=== PATIENT | female | born 1945 | race Caucasian/White ===

== ENCOUNTER 2017-08-23 09:28 | Emergency (ER) | payer MEDICARE, OTHER ==
[~2017-08-23] VITALS: Ht 157.5 cm; Wt 52.6 kg
[~2017-08-23 09:28] MED LIST: CALCIUM500 M2 PO; CRANBERRY450 M3; INDERAL60 MG PO; PHILLIPS; SENNA-DOCUSATE1 EAC2; Z VITAMIN D PO; Z.0.ASPIRIN81 MG PO; Z.0.DEPAKOTE250 MG PO; Z.0.VALIUM2 MG PO; [UNRECOGNIZED DRUG - OTHER]; [UNRECOGNIZED DRUG - OTHER] PO
--- NOTE | 2017-08-23 10:21 | Diagnostic Imaging Report ---
EXAM: XR CHEST 2 VIEWS DATE: 08/23/2017 9:41 AM INDICATION: Fever COMPARISON: 08/16/2014 FINDINGS: Lines and Tubes: None Heart and Mediastinum: No acute findings. Lungs and Pleura: No acute findings. Bones and Soft Tissues: No acute findings. IMPRESSION: 1. No acute cardiopulmonary findings. Signed by: Dr. Kristian Adams MD on 08/23/2017 10:18 AM
[2017-08-23] MEDS ORDERED: ONDANSETRON HCL 4 MG ORAL DISINTEGRATING TAB PO ONE (12:00)
[2017-08-23 13:40] VITALS: BP 120/55
== END 2017-08-23 14:19 | disposition home or self-care (01) ==
LOC: ER 09:28
DX: R50.9 Fever, unspecified (principal); R05 Cough; R11.0 Nausea; R51 Headache; M79.1 Myalgia; B34.9 Viral infection, unspecified
CPT/HCPCS: 71020; 87400; 99283

== ENCOUNTER 2018-04-02 14:38 | Emergency (ER) | payer MEDICARE, OTHER ==
[~2018-04-02] VITALS: Ht 157.5 cm; Wt 51.7 kg
[2018-04-02 15:49] LABS: BASOPHILS % 0.4 % (0.0-1.0); EOSINOPHILS # (AUTO) 0.1 (0.0-0.4); EOSINOPHILS % 1.6 % (0.0-6.0); HEMATOCRIT 49.1 % (34.2-44.1); HEMOGLOBIN 16.6 g/dL (12.0-16.0); LYMPHOCYTES # (AUTO) 2.3 (1.0-3.2); LYMPHOCYTES % 47.2 % (18.0-39.1); MEAN CORPUSCULAR HEMOGLOBIN 32.3 pg (28-32); MEAN CORPUSCULAR HGB CONC 33.8 g/dL (31-35); MEAN CORPUSCULAR VOLUME 95.5 fL (81-99); MONOCYTES # (AUTO) 0.4 (0.2-0.8); MONOCYTES % 8.5 % (4.4-11.3); NEUTROPHILS # (AUTO) 2.1 (2.1-6.9); NEUTROPHILS % 41.5 % (38.7-80.0); PLATELET COUNT 167 x10e3/uL (140-360); RED BLOOD COUNT 5.14 x10e6/uL (3.6-5.1); RED CELL DISTRIBUTION WIDTH 12.3 % (11.7-14.4)
[2018-04-02 15:58] LABS: BILIRUBIN,URINE NEGATIVE (NEGATIVE); CLARITY,URINE CLEAR (CLEAR); COLOR,URINE YELLOW (YELLOW); KETONES,URINE NEGATIVE (NEGATIVE); LEUKOCYTE ESTERASE ,URINE NEGATIVE (NEGATIVE); NITRITE,URINE NEGATIVE (NEGATIVE); PROTEIN,URINE DIPSTICK NEGATIVE (NEGATIVE); URINE UROBILINOGEN 0.2 mg/dL (0.2 - 1)
[2018-04-02 16:07] LABS: EPITHELIAL CELLS,URINE RARE /LPF
[2018-04-02 16:21] LABS: ALANINE AMINOTRANSFERASE 24 IU/L (0-55); ALBUMIN/GLOBULIN RATIO 1.3 (0.8-2.0); ALKALINE PHOSPHATASE 69 IU/L (40-150); ANION GAP 12.9 mmol/L (8-16); BLOOD UREA NITROGEN 21 mg/dL (7-26); BUN/CREATININE RATIO 25 (6-25); CALCIUM 9.5 mg/dL (8.4-10.2); CARBON DIOXIDE 29 mmol/L (22-29); CHLORIDE 100 mmol/L (98-107); CREATININE, SERUM 0.85 mg/dL (0.57-1.11); EST GLOMERULAR FILTRATION RATE > 60 ML/MIN (60-); GLUCOSE 87 mg/dL (74-118); POTASSIUM 3.9 mmol/L (3.5-5.1); SODIUM 138 mmol/L (136-145)
[2018-04-02 16:41] LABS: THYROID STIMULATING HORMONE 1.856 uIU/mL (0.350-4.940)
[2018-04-02 16:43] LABS: ERYTHROCYTE SEDIMENTATION RATE 2 mm/hr (0-20)
--- NOTE | 2018-04-02 16:48 | Diagnostic Imaging Report ---
History:Migraines Comparison studies:CT of the head 02/27/2009 Technique: Axial images were obtained from the skull base to the vertex. Coronal and sagittal images reconstructed from the axial data. Intravenous contrast: None Findings: Scalp/skull: No abnormalities. Extra-axial spaces: No masses. No fluid collections. Brain sulci: Mildly prominent. Ventricles: Mild compensatory dilatation. No hydrocephalus. Parenchyma: Scattered small hypodensities in the supratentorial white matter are small vessel ischemic changes. No masses, hemorrhage, acute or chronic cortical vascular insults. Sellar/suprasellar region: No abnormalities. Craniocervical junction: Patent foramen magnum. No Chiari one malformation. Incidental findings: Atherosclerotic calcifications in the carotid siphons . Impression: No acute abnormalities. Chronic findings: 1. Mild generalized volume loss. 2. Mild supratentorial white matter small vessel ischemic changes. Signed by: DR Severino Landry M.D. on 04/02/2018 4:44 PM
[2018-04-02 18:47] VITALS: BP 144/78
== END 2018-04-02 19:02 | disposition home or self-care (01) ==
LOC: ER 14:38
DX: H81.43 Vertigo of central origin, bilateral (principal)
CPT/HCPCS: 36415; 70450; 80053; 80164; 81001; 84443; 85025; 85651; 87086; 93005; 99284

== ENCOUNTER → 2018-05-14 | Outpatient (CLI) | payer MEDICARE ==
--- NOTE | 2018-05-14 17:50 | Diagnostic Imaging Report ---
Exam: Brain MRI without IV contrast History: Headache, migraine Comparison studies: Head CT of 04/02/2018 and 02/27/2009. Technique: Sagittal and axial T2 FS, axial DWI, axial T2*GRE, axial T1 FLAIR and axial coronal T2 FLAIR. Intravenous contrast: None Findings: Scalp: Normal in signal. No masses. Bone marrow: Normal in signal intensity. Brain sulci: Mildly prominent. Ventricles: Mild compensatory dilatation. No hydrocephalus. Extra axial spaces: No mass, no fluid collection. Parenchyma: No mass, hemorrhage or acute ischemia. A few scattered and mildly confluent T2 FLAIR hyperintense foci in the supratentorial white matter are nonspecific most compatible with chronic microvascular ischemic changes. Small chronic lacunar infarct in the right cerebellum. Suprasellar region: No abnormalities. Craniocervical junction: Patent foramen magnum. No Chiari malformation. Vessels: Normal flow-voids in the arteries and sinuses. IMPRESSION: 1. Mild generalized volume loss. 2. Mild to moderate chronic microvascular ischemic changes. 3. Small chronic right cerebellar lacunar infarct. Signed by: Dr. Terrence Wheeler M.D. on 05/14/2018 5:46 PM
== END ==
LOC: MRI 16:34
PROVIDERS: ATTEND Psychiatry & Neurology Clinical Neurophysiology
DX: G43.019 Migraine without aura, intractable, without status migrainosus (principal)
CPT/HCPCS: 70551

== ENCOUNTER 2018-06-17 11:35 | Emergency (ER) | payer MEDICARE ==
[~2018-06-17] VITALS: Ht 157.5 cm; Wt 51.7 kg
--- OUTSIDE RECORDS SUMMARY | 2018-06-17 11:39 | XMS REPORT | Clinical Summary ---
Author Author [facility] Address Unknown Phone Unavailable Care Team Providers Care Spd Tech Name Role Phone Ronnie Flores MD PCP Allergies Active Allergy Reactions Severity Noted Date Comments Acetaminophen-Codeine 07/09/2017 Sulfamethoxazole-Trimetho 07/09/2017 prim Ciprofloxacin 07/09/2017 Duloxetine 07/09/2017 Meperidine 07/09/2017 Amitriptyline 07/09/2017 Iodine 07/09/2017 Nitrofurantoin 07/09/2017 Macrocrystal Butorphanol Tartrate 07/09/2017 Pentazocine Lactate 07/09/2017 Gatifloxacin 07/09/2017 Tramadol 07/09/2017 Sertraline 07/09/2017 Current Medications Prescription Sig. Disp. Refills Start End Date Status Date divalproex (DEPAKOTE) 250 1 tablet daily. 1 06/22/20 Active MG EC tablet 17 propranolol (INDERAL) 40 Take 40 mg by mouth once 0 05/06/20 Active MG tablet daily. 17 aspirin (ECOTRIN) 81 MG Take 81 mg by mouth Active enteric coated tablet daily. diazePAM (VALIUM) 2 MG Take 2 mg by mouth as Active tablet needed for anxiety. acetaminophen (TYLENOL) Take 500 mg by mouth as Active 500 MG tablet needed for mild pain. senna (SENOKOT) 8.6 mg Take 2 tablets by mouth Active tablet daily. docusate sodium (COLACE) Take 100 mg by mouth 2 Active 100 MG capsule (two) times a day. SIMETHICONE (GAS-X ORAL) Take 1 tablet by mouth as Active needed. multivitamin (THERAGRAN) Take 1 tablet by mouth Active tablet daily. tiZANidine (ZANAFLEX) 2 Take 1/2-1 po tid prn 60 tablet 2 07/09/20 Active MG tabletIndications: vertigo or headache 17 Migraine without aura and without status migrainosus, not intractable, Vertigo butalbital-acetaminophen- Take 1 by mouth every 6 20 tablet 0 08/12/20 Active caff (FIORICET, ESGIC) hours when necessary 17 50-325-40 mg per tablet headache butalbital-acetaminophen- Take 1 tablet by mouth 2 06/08/20 08/12/20 Discontin caff (FIORICET, ESGIC) every 6 (six) hours as 17 17 ued 50-325-40 mg per tablet needed. Active Problems Problem Noted Date Migraine without aura and without status migrainosus, not intractable 07/09/2017 Vertigo 07/09/2017 History of cerebellar stroke 07/09/2017 Anxiety 07/09/2017 Encounters Date Type Specialty Care Team Description 10/28/2017 Telephone Neurology Kait Gregg MD 08/12/2017 Telephone Neurology Aletha Geronimo MA 07/09/2017 Office Visit Neurology Kait Gregg MD Migraine without aura and without status migrainosus, not intractable (Primary Dx); Vertigo; History of cerebellar stroke; Anxiety 06/22/2017 Telephone Neurology Kait Gregg MD after 06/16/2017 Family History Medical History Relation Name Comments Heart disease Father Hypertension Father Diabetes Mother Heart disease Mother Hypertension Mother Migraines Mother Pancreatic cancer Mother Stroke Mother Relation Name Status Comments Father (Age 78) Mother (Age 65) Social History Tobacco Use Types Packs/Day Years Used Date Former Smoker Quit: 2007 Alcohol Use Drinks/Week oz/Week Comments No Sex Assigned at Date Recorded Not on file Last Filed Vital Signs Vital Sign Reading Time Taken Blood Pressure 134/84 07/09/2017 1:19 PM LINE LEADER Pulse 69 07/09/2017 1:19 PM LINE LEADER Temperature - - Respiratory Rate - - Oxygen Saturation - - Inhaled Oxygen - - Concentration Weight 53.1 kg (117 lb) 07/09/2017 1:16 PM LINE LEADER Height 157.5 cm (5' 2") 07/09/2017 1:16 PM LINE LEADER Body Mass Index 21.4 07/09/2017 1:16 PM LINE LEADER Plan of Treatment Health Maintenance Due Date Last Done Comments BREAST CANCER SCREENING 1993 COLON CANCER SCREENING 1993 SHINGRIX VACCINE (#1) 1993 ZOSTER VACCINE 2003 PNEUMOCOCCAL 2008 POLYSACCHARIDE VACCINE AGE 65 AND OVER PNEUMOCOCCAL-13 2008 INFLUENZA VACCINE 03/31/2018 Results Not on fileafter 06/16/2017 Insurance Payer Benefit Subscriber ID Type Phone Address Plan / Group MEDICARE MEDICARE xxxxxxxxxx Medicare [place]OTH[place], [place] PART A AND B [facility] xxxxxxxxx [facility] [place] [address]
[2018-06-17] MEDS ORDERED: ONDANSETRON HCL INJ 2 MG/ML VIAL IV STA (12:33)
[2018-06-17] MEDS ORDERED: IBUPROFEN 400 MG TAB PO ONE (12:45)
[2018-06-17] MEDS ORDERED: FENTANYL CITRATE/PF 100MCG/2 ML INJ IV ONE (13:15)
[2018-06-17 13:31] LABS: BASOPHILS % 0.3 % (0.0-1.0); EOSINOPHILS # (AUTO) 0.1 (0.0-0.4); HEMATOCRIT 45.7 % (34.2-44.1); HEMOGLOBIN 15.1 g/dL (12.0-16.0); LYMPHOCYTES # (AUTO) 1.5 (1.0-3.2); LYMPHOCYTES % 23.6 % (18.0-39.1); MEAN CORPUSCULAR HEMOGLOBIN 32.1 pg (28-32); MEAN CORPUSCULAR VOLUME 97.2 fL (81-99); MONOCYTES # (AUTO) 0.3 (0.2-0.8); MONOCYTES % 4.1 % (4.4-11.3); NEUTROPHILS # (AUTO) 4.5 (2.1-6.9); NEUTROPHILS % 69.7 % (38.7-80.0); PLATELET COUNT 109 x10e3/uL (140-360); RED CELL DISTRIBUTION WIDTH 12.2 % (11.7-14.4)
[2018-06-17 13:48] LABS: ALANINE AMINOTRANSFERASE 26 IU/L (0-55); ALBUMIN 3.8 g/dL (3.5-5.0); ALBUMIN/GLOBULIN RATIO 1.5 (0.8-2.0); ALKALINE PHOSPHATASE 54 IU/L (40-150); ANION GAP 16.8 mmol/L (8-16); BLOOD UREA NITROGEN 21 mg/dL (7-26); BUN/CREATININE RATIO 26 (6-25); CALCIUM 9.4 mg/dL (8.4-10.2); CARBON DIOXIDE 22 mmol/L (22-29); CHLORIDE 103 mmol/L (98-107); EST GLOMERULAR FILTRATION RATE > 60 ML/MIN (60-); GLUCOSE 134 mg/dL (74-118); POTASSIUM 4.8 mmol/L (3.5-5.1); SODIUM 137 mmol/L (136-145)
[2018-06-17 14:20] LABS: CREATINE KINASE MB 0.9 ng/mL (0-5.0)
--- NOTE | 2018-06-17 14:37 | Diagnostic Imaging Report ---
EXAM: XR CHEST 2 VIEWS DATE: 06/17/2018 12:33 PM INDICATION: Pain, nausea COMPARISON: None FINDINGS: Lines and Tubes: None Heart and Mediastinum: No acute cardiomediastinal findings. Lungs and Pleura: No significant pleural effusion, pneumothorax, or focal consolidation. Bones and Soft Tissues: No acute findings. IMPRESSION: 1. No acute cardiopulmonary findings. Signed by: Dr. Kristian Adams MD on 06/17/2018 2:33 PM
[2018-06-17] MEDS ORDERED: HYDROMORPHONE 1MG/1ML INJ IV STA (14:39)
[2018-06-17] MEDS ORDERED: HYDROMORPHONE 2MG/ML 2 MG/ML ML IV NR (14:45)
[2018-06-17] MEDS ORDERED: ONDANSETRON HCL INJ 2 MG/ML VIAL IV NR (14:53)
[2018-06-17 16:23] LABS: BILIRUBIN,URINE NEGATIVE (NEGATIVE); CLARITY,URINE CLEAR (CLEAR); COLOR,URINE YELLOW (YELLOW); KETONES,URINE 1+ (NEGATIVE); LEUKOCYTE ESTERASE ,URINE NEGATIVE (NEGATIVE); NITRITE,URINE NEGATIVE (NEGATIVE); PROTEIN,URINE DIPSTICK NEGATIVE (NEGATIVE); URINE UROBILINOGEN 0.2 mg/dL (0.2 - 1)
[2018-06-17] MEDS ORDERED: PROMETHAZINE HCL 25 MG TAB PO NR (16:30)
[2018-06-17 16:34] LABS: BACTERIA,URINE MODERATE /HPF; EPITHELIAL CELLS,URINE FEW /LPF
[2018-06-17 16:35] LABS: AMORPHOUS SEDIMENT,URINE MANY (FEW); HYALINE CASTS 0-1 (0-1); MUCUS,URINE MODERATE (RARE)
[2018-06-17] MEDS ORDERED: HYDROMORPHONE 2MG/ML 2 MG/ML ML IV ONE (16:45)
[2018-06-17] MEDS ORDERED: PROMETHAZINE12.5 M1 PO (18:07)
[2018-06-17] MEDS ORDERED: ONDANSETRON HCL 4 MG ORAL DISINTEGRATING TAB PO ONE (18:15)
[2018-06-17] MEDS ORDERED: ACETAMINOPHEN 325 MG TAB PO ONE (18:15)
[2018-06-17] MEDS ORDERED: ACETAMINOPHEN 325 MG TAB ONE (18:25)
[2018-06-17] MEDS ORDERED: ACETAMINOPHEN 325 MG TAB PO NR (18:30)
[2018-06-17 19:34] VITALS: BP 186/83
== END 2018-06-17 19:20 | disposition home or self-care (01) ==
LOC: ER 11:35
DX: M54.6 Pain in thoracic spine (principal); S23.3XXA Sprain of ligaments of thoracic spine, initial encounter; X50.1XXA Overexertion from prolonged static or awkward postures, initial encounter; Y92.008 Other place in unspecified non-institutional (private) residence as the place of occurrence of the external cause; Z86.73 Personal history of transient ischemic attack (TIA), and cerebral infarction without residual deficits
CPT/HCPCS: 36415; 71046; 80053; 81001; 82550; 82553; 84484; 85025; 99284; J1170; J2405

== ENCOUNTER 2018-06-18 18:37 | Emergency (ER) | payer MEDICARE ==
[~2018-06-18] VITALS: Ht 157.5 cm; Wt 51.7 kg
[~2018-06-18 18:37] MED LIST changes: +PROMETHAZINE12.5 M1 PO
--- OUTSIDE RECORDS SUMMARY | 2018-06-18 18:41 | XMS REPORT | Clinical Summary ---
Author Author [facility] Address Unknown Phone Unavailable Care Team Providers Care Pet Groomer Name Role Phone Ronnie Flores MD PCP [...] 06/22/2017 Telephone Neurology Kait Gregg MD after 06/17/2017 Family History Medical History Relation Name Comments [...] Taken Blood Pressure 134/84 07/09/2017 1:19 PM AUTOMATION TEST DEVELOPER Pulse 69 07/09/2017 1:19 PM AUTOMATION TEST DEVELOPER Temperature - - Respiratory Rate - - Oxygen Saturation - - Inhaled Oxygen - - Concentration Weight 53.1 kg (117 lb) 07/09/2017 1:16 PM AUTOMATION TEST DEVELOPER Height 157.5 cm (5' 2") 07/09/2017 1:16 PM AUTOMATION TEST DEVELOPER Body Mass Index 21.4 07/09/2017 1:16 PM AUTOMATION TEST DEVELOPER Plan of Treatment Health Maintenance Due Date Last Done Comments BREAST CANCER SCREENING 1993 COLON CANCER SCREENING 1993 SHINGRIX VACCINE (#1) 1993 ZOSTER VACCINE 2003 PNEUMOCOCCAL 2008 POLYSACCHARIDE VACCINE AGE 65 AND OVER PNEUMOCOCCAL-13 2008 INFLUENZA VACCINE 03/31/2018 Results Not on fileafter 06/17/2017 Insurance Payer Benefit Subscriber ID Type Phone Address Plan / Group MEDICARE MEDICARE xxxxxxxxxx Medicare [place], [place] PART A AND B [facility] xxxxxxxxx [facility] [place] [address]
[2018-06-18] MEDS ORDERED: HYDROCODONE/APAP 5MG-325MG TAB PO ONE (21:15)
[2018-06-18 21:36] LABS: BASOPHILS % 0.2 % (0.0-1.0); EOSINOPHILS % 0.3 % (0.0-6.0); HEMATOCRIT 49.6 % (34.2-44.1); HEMOGLOBIN 17.1 g/dL (12.0-16.0); LYMPHOCYTES # (AUTO) 2.3 (1.0-3.2); MEAN CORPUSCULAR HEMOGLOBIN 32.1 pg (28-32); MEAN CORPUSCULAR HGB CONC 34.5 g/dL (31-35); MEAN CORPUSCULAR VOLUME 93.2 fL (81-99); MONOCYTES # (AUTO) 0.9 (0.2-0.8); MONOCYTES % 10.5 % (4.4-11.3); NEUTROPHILS # (AUTO) 5.4 (2.1-6.9); NEUTROPHILS % 61.7 % (38.7-80.0); PLATELET COUNT 173 x10e3/uL (140-360); RED BLOOD COUNT 5.32 x10e6/uL (3.6-5.1); RED CELL DISTRIBUTION WIDTH 12.2 % (11.7-14.4)
[2018-06-18] MEDS ORDERED: LORAZEPAM 1 MG TAB PO STA (21:51)
[2018-06-18 21:53] LABS: ALANINE AMINOTRANSFERASE 23 IU/L (0-55); ALBUMIN 4.3 g/dL (3.5-5.0); ALBUMIN/GLOBULIN RATIO 1.4 (0.8-2.0); ALKALINE PHOSPHATASE 59 IU/L (40-150); ANION GAP 17.6 mmol/L (8-16); BLOOD UREA NITROGEN 17 mg/dL (7-26); BUN/CREATININE RATIO 20 (6-25); CALCIUM 10.4 mg/dL (8.4-10.2); CARBON DIOXIDE 27 mmol/L (22-29); CHLORIDE 100 mmol/L (98-107); CREATINE KINASE 44 IU/L (29-168); CREATININE, SERUM 0.84 mg/dL (0.57-1.11); EST GLOMERULAR FILTRATION RATE > 60 ML/MIN (60-); GLUCOSE 140 mg/dL (74-118); POTASSIUM 4.6 mmol/L (3.5-5.1); SODIUM 140 mmol/L (136-145)
[2018-06-18] MEDS ORDERED: BUPIVACAINE HCL 0.5% INJ 30 ML VIAL INJ ONE (22:45)
[2018-06-18] MEDS ORDERED: METHYLPREDNISOLONE ACETATE 40 MG/ML VIAL IM ONE (22:45)
[2018-06-18] MEDS ORDERED: BUPIVACAINE HCL 0.5% 10ML MPF VIAL INJ ONE (23:06)
[2018-06-18] MEDS ORDERED: METHYLPREDNISOLONE ACETATE 80 MG/ML VIAL ONE (23:06)
[2018-06-18 23:58] VITALS: BP 178/84
== END 2018-06-19 00:29 | disposition home or self-care (01) ==
LOC: ER 18:37
DX: I10 Essential (primary) hypertension (principal); Z86.73 Personal history of transient ischemic attack (TIA), and cerebral infarction without residual deficits; Z87.442 Personal history of urinary calculi
CPT/HCPCS: 20552; 36415; 80053; 82550; 82553; 84484; 85025; 93005; 99284; J1040

== ENCOUNTER 2019-06-10 13:14 | Emergency (ER) | payer MEDICARE ==
[~2019-06-10] VITALS: Ht 157.5 cm; Wt 51.7 kg
[2019-06-10 14:34] LABS: BASOPHILS % 0.4 % (0.0-1.0); EOSINOPHILS # (AUTO) 0.1 (0.0-0.4); EOSINOPHILS % 2.5 % (0.0-6.0); HEMATOCRIT 44.4 % (34.2-44.1); HEMOGLOBIN 15.1 g/dL (12.0-16.0); LYMPHOCYTES # (AUTO) 1.4 (1.0-3.2); LYMPHOCYTES % 48.8 % (18.0-39.1); MEAN CORPUSCULAR HEMOGLOBIN 32.5 pg (28-32); MEAN CORPUSCULAR VOLUME 95.5 fL (81-99); MONOCYTES # (AUTO) 0.3 (0.2-0.8); MONOCYTES % 8.8 % (4.4-11.3); NEUTROPHILS # (AUTO) 1.1 (2.1-6.9); NEUTROPHILS % 39.1 % (38.7-80.0); PLATELET COUNT 103 x10e3/uL (140-360); RED BLOOD COUNT 4.65 x10e6/uL (3.6-5.1); RED CELL DISTRIBUTION WIDTH 12.5 % (11.7-14.4)
[2019-06-10 14:56] LABS: ALANINE AMINOTRANSFERASE 20 IU/L (0-55); ALBUMIN 3.9 g/dL (3.5-5.0); ALBUMIN/GLOBULIN RATIO 1.3 (0.8-2.0); ALKALINE PHOSPHATASE 59 IU/L (40-150); BLOOD UREA NITROGEN 14 mg/dL (7-26); BUN/CREATININE RATIO 17 (6-25); CALCIUM 9.8 mg/dL (8.4-10.2); CARBON DIOXIDE 28 mmol/L (22-29); CHLORIDE 101 mmol/L (98-107); CREATININE, SERUM 0.82 mg/dL (0.57-1.11); EST GLOMERULAR FILTRATION RATE > 60 ML/MIN (60-); GLUCOSE 123 mg/dL (74-118); SODIUM 139 mmol/L (136-145)
[2019-06-10 15:19] LABS: BILIRUBIN,URINE NEGATIVE (NEGATIVE); CLARITY,URINE CLEAR (CLEAR); COLOR,URINE YELLOW (YELLOW); KETONES,URINE NEGATIVE (NEGATIVE); LEUKOCYTE ESTERASE ,URINE NEGATIVE (NEGATIVE); NITRITE,URINE NEGATIVE (NEGATIVE); PROTEIN,URINE DIPSTICK NEGATIVE (NEGATIVE); URINE UROBILINOGEN 0.2 mg/dL (0.2 - 1)
[2019-06-10 15:43] LABS: EPITHELIAL CELLS,URINE FEW /LPF
--- NOTE | 2019-06-10 16:02 | NUR ---
PER ORDERS FROM SUBHA, ENP PT TOOK HOME DOSE OF VALIUM 1 MG PO AT THIS TIME.
[2019-06-10 16:07] LABS: CREATINE KINASE MB 0.9 ng/mL (0-5.0)
[2019-06-10 16:49] LABS: INR 0.85; PARTIAL THROMBOPLASTIN TIME 26.4 seconds (23.8-35.5); PROTHROMBIN TIME 12.1 seconds (11.9-14.5)
--- NOTE | 2019-06-10 17:08 | Diagnostic Imaging Report ---
EXAMINATION: CHEST SINGLE (PORTABLE) INDICATION: Shortness of breath, dizziness COMPARISON: Chest radiograph of 06/17/2018 FINDINGS: LINES/TUBES:EKG leads overlie the chest. LUNGS:The lungs are mildly hyperinflated. No focal consolidation or pulmonary edema. Mild central bronchial wall thickening. PLEURA:No pleural effusion or pneumothorax. MEDIASTINUM:The cardiomediastinal silhouette appears normal in size and shape. Atherosclerotic calcifications of the thoracic aorta. BONES/SOFT TISSUES:No acute osseous injury. ABDOMEN:No free air under the diaphragm. IMPRESSION: No focal pneumonia or pulmonary edema. Mild central bronchial wall thickening can be seen with bronchitis. Signed by: Victoria Weaver MD on 06/10/2019 5:05 PM
[2019-06-10 17:40] VITALS: BP 131/72
== END 2019-06-10 17:42 | disposition home or self-care (01) ==
LOC: ER 13:14
DX: R42 Dizziness and giddiness (principal); R06.09 Other forms of dyspnea; Z86.73 Personal history of transient ischemic attack (TIA), and cerebral infarction without residual deficits
CPT/HCPCS: 36415; 71045; 80053; 81001; 82550; 82553; 83735; 83880; 84484; 85025; 85610; 85730; 93005; 99284

== ENCOUNTER 2020-04-06 08:41 | Observation (INO) | payer MEDICARE, OTHER ==
[~2020-04-06] VITALS: Ht 157.5 cm; Wt 52.6 kg
[2020-04-06] VITALS (8 sets, daily range): BP systolic 121–185; BP diastolic 65–76
[2020-04-06] MEDS ORDERED: FENTANYL CITRATE/PF 100MCG/2 ML INJ IV ONE (09:00)
[2020-04-06] MEDS ORDERED: METHYLPREDNISOLONE SOD SUCC 125 MG/2ML VIAL IV ONE (09:00)
--- NOTE | 2020-04-06 09:14 | Emergency Department Note ---
History of Present Illnes History of Present Illness Chief Complaint: Back Pain History of Present Illness This is a 74 year old female arrives to the ED with atraumatic back pain that feels like her usual flareup- patient states he usually gets a shot her back which helped her pain. Patient denies any weakness in her lower extremities. Framing Consultant Required: No Onset (how long ago): day(s) Radiation: Reports back Severity: mild Onset quality: gradual Duration (how long): day(s) Timing of current episode: intermittent Progression: unchanged Chronicity: chronic Relieving factors: none Exacerbating factors: none Past Medical/Family History Physician Review I have reviewed the patient's past medical and family history. Any updates have been documented here. 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 Past Surgical History: Cholecysctectomy, Appendectomy Other Surgery: HEMORRHOID Ureteral stents x2 Other Last Tetanus: UTD Review of Systems Review of Systems Constitutional: Reports no symptoms EENTM: Reports no symptoms Cardiovascular: Reports no symptoms Respiratory: Reports no symptoms Gastrointestinal: Reports no symptoms Genitourinary: Reports no symptoms Musculoskeletal: Reports as per HPI, Reports back pain Integumentary: Reports no symptoms Neurological: Reports no symptoms Psychological: Reports no symptoms Endocrine: Reports no symptoms Hematological/Lymphatic: Reports no symptoms Physical Exam Related Data Allergies: Coded Allergies: topiramate (Verified Allergy, Mild, Stuttering, "silly", 06/17/18) Nitrofurantoin Macrocrystal (Verified Allergy, Unknown, 08/23/17) amitriptyline (Verified Allergy, Unknown, 04/02/18) ciprofloxacin HCl (Verified Allergy, Unknown, 08/23/17) codeine (Verified Allergy, Unknown, 06/17/18) duloxetine (Verified Allergy, Unknown, 04/02/18) egg (Verified Allergy, Unknown, 04/07/20) gatifloxacin (Verified Allergy, Unknown, 08/23/17) iodine (Verified Allergy, Unknown, 04/02/18) pentazocine (Verified Allergy, Unknown, 04/02/18) sertraline (Verified Allergy, Unknown, 04/02/18) sulfamethoxazole (Verified Allergy, Unknown, 08/23/17) tramadol (Verified Allergy, Unknown, 04/02/18) trimethoprim (Verified Allergy, Unknown, 08/23/17) butorphanol tartrate (Verified Adverse Reaction, Unknown, HALLUCINATE, 08/23/17) meperidine HCl (Verified Adverse Reaction, Unknown, VERTIGO, 08/23/17) Vital signs reviewed: Yes Physical Exam CONSTITUTIONAL Constitutional: Present well-developed, Present well-nourished HENT HENT: Present normocephalic, Present atraumatic, Present oropharynx clear/moist, Present nose normal HENT L/R: Present left ext ear normal, Present right ext ear normal EYES Eyes: Reports PERRL, Reports conjunctivae normal NECK Neck: Present ROM normal PULMONARY Pulmonary: Present effort normal, Present breath sounds normal CARDIOVASCULAR Cardiovascular: Present regular rhythm, Present heart sounds normal, Present capillary refill normal, Present normal rate GASTROINTESTINAL Abdominal: Present soft, Present nontender, Present bowel sounds normal GENITOURINARY Genitourinary: Present exam deferred SKIN Skin: Present warm, Present dry MUSCULOSKELETAL Musculoskeletal: Present ROM normal NEUROLOGICAL Neurological: Present alert, Present oriented x 3, Present no gross motor or sensory deficits PSYCHOLOGICAL Psychological: Present mood/affect normal, Present judgement normal Results Laboratory Lab results reviewed: Yes Imaging Imaging results reviewed: Yes Assessment & Plan Medical Decision Making MDM 74-year-old female arrives to the ED with complaints of back pain, multiple attempts made to the patient's symptoms, however, she required hospital admission for pain management and pain control. Patient is Dr. Rhoades. Assessment & Plan Final Impression: (1) Intractable vomiting (2) Back pain Depart Disposition: ADMITTED Home Meds Active Scripts [Lidocaine Patch] 1 EA PATCH No Conflict Check, 1 EA TP Q24H PRN for LOWER BACK PAIN for 14 Days, #14 PATCH 1 Refill Prov:SAMINA LOPES NP 04/07/20 [Diphenhydramine Hcl] 25 MG CAP No Conflict Check, 25 MG PO Q6HR PRN for ITCHING for 14 Days, #30 TAB 0 Refills Prov:SAMNIA LPOES NP 04/07/20 Promethazine Hcl (PROMETHAZINE HCL) 12.5 Mg Tablet, 12.5 MG PO Q6H PRN for NAUSEA, #10 TAB Prov:YARIEL RAMIRES GEAR MACHINE OPERATOR GENERAL 06/17/18 Reported Medications Sennosides/Docusate Sodium (SENNA-DOCUSATE SODIUM TABLET) 1 Each Tablet, 8 MG 4/26/12 [Patricia] No Conflict Check, 2 12/25/11 [Metamacil] No Conflict Check, DAILY 12/25/11 Aspirin (Aspirin) 81 Mg Tab.chew, 81 MG PO DAILY 12/25/11 Cholecalciferol (Vitamin D) 400 Unit Capsule, 1 TAB PO DAILY 12/20/11 Calcium (Calcium) 500 Mg Tablet, 250 MG PO DAILY 12/20/11 Isometheptene/Acetaminoph/Caff (Prodrin Caplet) 1 Each Tablet, 1 TAB PO PRN 12/20/11 Divalproex Sodium (Depakote) 250 Mg Tablet.dr, 3 TAB PO DAILY 12/20/11 Propranolol Hcl (Inderal) 60 Mg Tablet, 40 MG PO DAILY 12/20/11 Discontinued Reported Medications Cranberry Fruit (CRANBERRY) 450 Mg Tablet, 500 MG DAILY 12/25/11 Diazepam (Valium) 2 Mg Tablet, 1 TAB PO PRN 12/20/11 EDDI KUMAR DO Apr 06, 2020 09:14
[2020-04-06] MEDS ORDERED: ONDANSETRON HCL INJ 2MG/ML 2ML 2 MG/ML VIAL IV STA ×2 (09:16→10:30)
[2020-04-06] MEDS ORDERED: DIAZEPAM 5 MG TAB ONE (09:17)
--- OUTSIDE RECORDS SUMMARY | 2020-04-06 09:26 | XMS REPORT | Continuity of Care Document ---
Author Author [facility] t Organization [facility] t Address [address] [place] [address] Phone Unavailable Care Team Providers Care Loom Inspector Name Role Phone LORE DUARTE, ERIN PCP Misty SENIOR Attphys Unavailable Rin BAUTISTA Attphys Unavailable Gunner GILBERT Attphys Unavailable Payers Payer Name Policy Type Policy Number Effective Date Expiration Date [facility] [id number] [facility] Problems Condition Name Condition Details Condition Category Status Onset Date Resolution Date Last Treatment Date Treating Clinician Comments Source Migraine without aura and without status migrainosus, not intractable Migraine without aura and without status migrainosus, not intractable Disease Active 2017-07-09 00:00:00 [facility] Adventist Vertigo Vertigo Disease Active 2017-07-09 00:00:00 Gabo Martiist History of cerebellar stroke History of cerebellar stroke Disease Active 2017-07-09 00:00:00 [facility] Anxiety Anxiety Disease Active 2017-07-09 00:00:00 [place] [facility] Allergies, Adverse Reactions, Alerts Allergy Name Allergy Type Status Severity Reaction(s) Onset Date Inacti ve Date Treating Clinician Comments Source Codeine Allergy to Substance Active 2018-06-17 00:00:00 [facility] Topiramate Allergy to Substance Active Mild Stuttering, "si lly" 2018-06-17 00:00:00 [facility] Iodine Allergy to Substance Active 2018-04-02 00:00:00 [facility] Pentazocine Allergy to Substance Active 2018-04-02 00:00:00 [facility] Tramadol Allergy to Substance Active 2018-04-02 00:00:00 [facility] Amitriptyline Allergy to Substance Active 2018-04-02 00:00: 00 [facility] Sertraline Allergy to Substance Active 2018-04-02 00:00:00 [facility] Duloxetine Allergy to Substance Active 2018-04-02 00:00:00 [facility] meperidine HCl Propensity to adverse reactions Active VERTIGO 2017-08-23 00:00:00 [facility] butorphanol tartrate Propensity to adverse reactions Active HALLUCINATE 2017-08-23 00:00:00 [facility] Nitrofurantoin Macrocrystal Allergy to Substance Active 2017-08-23 00:00:00 [facility] ciprofloxacin HCl Allergy to Substance Active 2017-08-23 00 :00:00 [facility] Sulfamethoxazole Allergy to Substance Active 2017-08-23 00: 00:00 [facility] Trimethoprim Allergy to Substance Active 2017-08-23 00:00:0 0 [facility] Gatifloxacin Allergy to Substance Active 2017-08-23 00:00:0 0 [facility] EGGS Allergy to Substance Active 2017-08-23 00:00:00 [facility] Acetaminophen-Codeine Propensity to adverse reactions to drug Active 2017-07-09 00:00:00 Gabo krishnamurthy Sulfamethoxazole-Trimethoprim Propensity to adverse reactions to dr ug Active 2017-07-09 00:00:00 Gabo Lisa Ciprofloxacin Propensity to adverse reactions to drug Active 2017-07-09 00:00:00 Gabo aceves Duloxetine Propensity to adverse reactions to drug Active 2017-07-09 00:00:00 Gabo aceves Meperidine Propensity to adverse reactions to drug Active 2017-07-09 00:00:00 Gabo aceves Amitriptyline Propensity to adverse reactions to drug Active 2017-07-09 00:00:00 Gabo aceves Iodine Propensity to adverse reactions to drug Active 2017-07-09 00:00:00 Gabo Lisa Nitrofurantoin Macrocrystal Propensity to adverse reactions to drug A ctive 2017-07-09 00:00:00 Gabo Dia odist Butorphanol Tartrate Propensity to adverse reactions to drug Active 2017-07-09 00:00:00 Ayon Ifeoma odangel Pentazocine Lactate Propensity to adverse reactions to drug Active 2017-07-09 00:00:00 Gabo Ifeoma odangel Gatifloxacin Propensity to adverse reactions to drug Active 2017-07-09 00:00:00 Gabo Acuna t Tramadol Propensity to adverse reactions to drug Active 2017-07-09 00:00:00 Gabo Lisa Sertraline Propensity to adverse reactions to drug Active 2017-07-09 00:00:00 Gabo Martiis t Family History Family Member Diagnosis Comments Start Date Stop Date Source Natural father Heart disease [facility] Natural father Hypertension [facility] Natural mother Diabetes [facility] Natural mother Heart disease [facility] Natural mother Hypertension Gabo Martiist Natural mother Migraines [facility] Natural mother Pancreatic cancer Cholo Lisa Natural mother Stroke [facility] thodist Social History Social Habit Start Date Stop Date Quantity Comments Source History of tobacco use Current smoker Gabo Lisa Sex Assigned At [place] Lisa Alcohol intake 2017-07-09 00:00:00 2017-07-09 00:00:00 Current non-drinker of alcohol (finding) Gabo Lisa Smoking Status Start Date Stop Date Source Former smoker 2017-07-09 00:00:00 2017-07-09 00:00:00 Gabo Lisa Medications Ordered Medication Name Filled Medication Name Start Date Stop Da te Current Medication? Ordering Clinician Indication Dosage Frequency Signature (SIG) Comments Components Source Promethazine Hcl 12.5 Mg Tablet Promethazine Hcl 12.5 Mg Tab let 2018-06-17 00:00:00 Yes Balbir Sanders [employer] Secretary And Handicapper 12.5 Every 6 Cholo rs as needed for Nausea [facility] gxfvvnxiov-ymlnkxqhatcyh-ifro (FIORICET, ESGIC) 50-325-40 mg per tablet 2017-08-12 00:00:00 Yes Take 1 by mouth every 6 hours when necessary headache Gabo Lisa aspirin (ECOTRIN) 81 MG enteric coated tablet 2017-07-09 13:18:1 5 Yes 81mg QD Take 81 mg by mouth daily. H celso Lisa diazePAM (VALIUM) 2 MG tablet 2017-07-09 13:18:15 Yes 2mg Take 2 mg by mouth as needed for anxiety. Gabo frias acetaminophen (TYLENOL) 500 MG tablet 2017-07-09 13:18:15 Y es 500mg Take 500 mg by mouth as needed for mild pain. Gabo Lisa senna (SENOKOT) 8.6 mg tablet 2017-07-09 13:18:15 Yes 2{tbl} QD Take 2 tablets by mouth daily. Gabo aceves docusate sodium (COLACE) 100 MG capsule 2017-07-09 13:18:15 Yes 100mg Q.5D Take 100 mg by mouth 2 (two) times a day. Gabo Lisa SIMETHICONE (GAS-X ORAL) 2017-07-09 13:18:15 Yes 1{tbl} Take 1 tablet by mouth as needed. Gabo Lisa multivitamin (THERAGRAN) tablet 2017-07-09 13:18:15 Yes 1{tbl} QD Take 1 tablet by mouth daily. Gabo Lisa tiZANidine (ZANAFLEX) 2 MG tablet 2017-07-09 00:00:00 Yes Vertigo Take 1/2-1 po tid prn vertigo or headache Cholopenny Lisa divalproex (DEPAKOTE) 250 MG EC tablet 2017-06-22 00:00:00 Yes 1{tbl} 1 tablet daily. Gabo Lisa propranolol (INDERAL) 40 MG tablet 2017-05-06 00:00:00 Yes 40mg QD Take 40 mg by mouth once daily. Gabo norman Aspirin 81 Mg Tab.chew Aspirin 81 Mg Tab.chew Yes 81 Daily [facility] Calcium 500 Mg Tablet Calcium 500 Mg Tablet Yes 250 Daily [facility] Cholecalciferol (Vitamin D) 400 Unit Capsule Cholecalc iferol (Vitamin D) 400 Unit Capsule Yes 1 Daily [facility] Cranberry Fruit (Cranberry) 450 Mg Tablet Cranberry Fr uit (Cranberry) 450 Mg Tablet Yes 500 Daily [facility] Diazepam (Valium) 2 Mg Tablet Diazepam (Valium) 2 Mg Tablet Yes 1 As Needed [facility] Divalproex Sodium (Depakote) 250 Mg Tablet. Divalpro ex Sodium (Depakote) 250 Mg Tablet. Yes 3 Daily [facility] Isometheptene/Acetaminoph/Caff (Prodrin Caplet) 1 Each Tablet Isometheptene/Acetaminoph/Caff (Prodrin Caplet) 1 Each Tablet Ye s 1 As Needed [facility] Metamacil Metamacil Yes Daily [facility] Patricia Patricia Yes 2 [facility] Propranolol Hcl (Inderal) 60 Mg Tablet Propranolol Hcl (Inderal) 60 Mg Tablet Yes 1 Daily [facility] Sennosides/Docusate Sodium (Senna-Docusate Sodium Tabl et) 1 Each Tablet Sennosides/Docusate Sodium (Senna-Docusate Sodium Tablet) 1 Each Tablet Yes 8 [facility] Procedures This patient has no known procedures. Plan of Care Planned Activity Planned Date Details Comments Source Future Scheduled Test 2020-03-31 00:00:00 INFLUENZA VACCINE [code = INFLUENZA VACCINE] [facility] Scheduled Test 2008 00:00:00 65+ PNEUMOCOCCAL V ACCINE (1 of 2 - PCV13) [code = 65+ PNEUMOCOCCAL VACCINE (1 of 2 - PCV13)] [facility] Scheduled Test 1993 00:00:00 COLONOSCOPY SCREEN ING [code = COLONOSCOPY SCREENING] [facility] Scheduled Test 1993 00:00:00 SHINGLES VACCINES (#1) [code = SHINGLES VACCINES (#1)] [facility] Encounters Start Date/Time End Date/Time Encounter Type Admission Type [facility] Care Department Encounter ID Source 2019-06-10 13:14:00 2019-06-10 17:42:00 Departed Emergency Room 1 EDDI SENIOR [facility] [id number] [facility] 2018-04-02 14:38:00 2018-04-02 19:02:00 Departed Emergency Room 1 VLADIMIR SYED [facility] [id number] [facility] 2017-08-23 09:28:00 2017-08-23 14:19:00 Departed Emergency Room ER JETTSYED GUERRERO [facility] [id number] [facility] Results Test Description Test Time Test Comments Results Result Comments Source CHEST SINGLE (PORTABLE) 2019-06-10 17:04:00 [facility] [address] [address] Patient Name: TOMÁS MARIANO MR #: [id number] : 1945 Age/Sex: 73/F Req #: [id number] Adm Physician: Ordered by: BALBIR SANDERS [employer] STATISTICAL PROGRAMMER Report #: [id number] Location: ER Room/Bed: Procedure: [id number] DX/CHEST SINGLE (PORTABLE) Exam Date: 06/10/19 Exam Time: 1610 REPORT STATUS: Signed EXAMINATION: CHEST SINGLE (PORTABLE) INDICATION: Shortness of breath, dizziness COMPARISON: Chest radiograph of 06/17/2018 FINDINGS: LINES/TUBES:EKG leads overlie the chest. LUNGS:The lungs are mildly hyperinflated. No focal consolidation or pulmonary edema. Mild central bronchial wall thickening. PLEURA:No pleural effusion or pneumothorax. MEDIASTINUM:The cardiomediastinal silhouette appears normal in size and shape. Atherosclerotic calcifications of the thoracic aorta. BONES/SOFT TISSUES:No acute osseous injury. ABDOMEN:No free air under the diaphragm. IMPRESSION: No focal pneumonia or pulmonary edema. Mild central bronchial wall thickening can be seen with bronchitis. Signed by: Andie Magana MD on 06/10/2019 5:05 PM Dictated By: ANDIE MAGANA MD 04 Transcribed By: KERI on 06/10/191704 COPY TO: BALBIR SANDERS NP Prothrombin Time 2019-06-10 16:50:00 Test Item Prothrombin Time (test code = 5902-2) 12.1 11.9-14.5 [facility] International Ratio 2019-06-10 16:50:00* Test Item Value Reference Range Interpretation Comments Prothromb Time International Ratio (test code = 6301-6) 0.85 Oral Anticoagulant Therapy INR Values:1. Low Intensity Therapy 1.5 - 2.02 . Moderate Intensity Therapy 2.0 - 3.03. High Intensity Therapy(1) 2.5 - 3. 54. High Intensity Therapy(2) 3.0 - 4.05. Panic Value INR > 5.0 [facility]ville[facility] Partial Thromboplast Time 2019-06-10 16:50:00* Test Item Value Reference Range Interpretation Comments Activated Partial Thromboplast Time (test code = 08756-2) 26.4 23.8-35.5 [facility]villeMagnesium [id number] 16:25:00* Test Item Value Reference Range Interpretation Comments Magnesium Level (test code = 91117-7) 2.0 1.3-2.1 [facility]villeB-Type Natriuretic Aeyeely7342-73-78 16:14:00* Test Item Value Reference Range Interpretation Comments B-Type Natriuretic Peptide (test code = 22028-2) 49.1 0-100 [facility]villeCreatine Kinase [id number] 16:09:00* Test Item Value Reference Range Interpretation Comments Creatine Kinase MB (test code = 77557-7) 0.90 0-5.0 [facility]villeTroponin [id number] 16:09:00* Test Item Value Reference Range Interpretation Comments Troponin I (test code = BZO2882) 0.011 0-0.300 [facility]villeCreatine Owinhy4826-79-29 16:02:00* Test Item Value Reference Range Interpretation Comments Creatine Kinase (test code = 2157-6) 55 29-168 [facility]ville[facility]rine [id number] 15:43:00* Test Item Value Reference Range Interpretation Comments Urine WBC (test code = 5821-4) NONE 0-5 [facility]ville[facility]rine [id number] 15:43:00* Test Item Value Reference Range Interpretation Comments Urine RBC (test code = 61556-4) NONE 0-5 [facility]ville[facility]rine Opmiwpqg3550-26-65 15:43:00* Test Item Value Reference Range Interpretation Comments Urine Bacteria (test code = 39817-3) NONE NONE [facility]ville[facility] Epithelial Uyztu5103-08-84 15:43:00 * Test Item Value Reference Range Interpretation Comments Urine Epithelial Cells (test code = 43320-8) FEW NONE [facility]villeUrine Vxflu8768-07-64 15:19:00* Test Item Value Reference Range Interpretation Comments Urine Color (test code = 5778-6) YELLOW YELLOW [facility]villeUrine Wsvgaro8576-08-63 15:19:00* Test Item Value Reference Range Interpretation Comments Urine Clarity (test code = 81323-9) CLEAR CLEAR [facility]villeU[facility] Specific Urhughp3979-53-65 15:19:00 * Test Item Value Reference Range Interpretation Comments Urine Specific [place] (test code = 5811-5) 1.010 1.010-1.02 5 [facility]villeUrine [id number] 15:19:00* Test Item Value Reference Range Interpretation Comments Urine pH (test code = 25767-7) 6 5-7 [facility] Leukocyte Mispqxgt2785-99-38 15:19:00* Test Item Value Reference Range Interpretation Comments Urine Leukocyte Esterase (test code = 26723-5) NEGATIVE NEGATIV E [facility]villeUrine Ldnbsnm4341-47-78 15:19:00* Test Item Value Reference Range Interpretation Comments Urine Nitrite (test code = 20693-7) NEGATIVE NEGATIVE [facility]villeUrine Truoysw3618-88-31 15:19:00* Test Item Value Reference Range Interpretation Comments Urine Protein (test code = 64307-5) NEGATIVE NEGATIVE [facility]ville[facility]rine Glucose (UA)2019-06-10 15:19:00* Test Item Value Reference Range Interpretation Comments Urine Glucose (UA) (test code = 96562-0) NEGATIVE NEGATIVE [facility]villeUrine Pcfgmeq5312-47-00 15:19:00* Test Item Value Reference Range Interpretation Comments Urine Ketones (test code = 21556-2) NEGATIVE NEGATIVE [facility]villeUrine Vouceqersztm5581-85-24 15:19:00* Test Item Value Reference Range Interpretation Comments Urine Urobilinogen (test code = 71997-2) 0.2 0.2-1 [facility]villeUrine Hydnrjuga8013-56-25 15:19:00* Test Item Value Reference Range Interpretation Comments Urine Bilirubin (test code = 1977-8) NEGATIVE NEGATIVE [facility]villeUrine Fmwgv1357-43-60 15:19:00* Test Item Value Reference Range Interpretation Comments Urine Blood (test code = 59970-6) NEGATIVE NEGATIVE [facility] Wyjhj9068-17-34 15:01:00* Test Item Value Reference Range Interpretation Comments Sodium Level (test code = 2951-2) 139 136-145 [facility]Potassium Ebdtd9009-14-45 15:01:00* Test Item Value Reference Range Interpretation Comments Potassium Level (test code = 2823-3) 4.0 3.5-5.1 [facility]villeChloride Mefrx8070-09-66 15:01:00* Test Item Value Reference Range Interpretation Comments Chloride Level (test code = 2075-0) 101 98-107 [facility] GreenvilleCarbon Dioxide Rekjd9034-15-92 15:01:00* Test Item Value Reference Range Interpretation Comments Carbon Dioxide Level (test code = 2028-9) 28 22-29 [facility] GreenvilleAnion [id number] 15:01:00* Test Item Value Reference Range Interpretation Comments Anion Gap (test code = 66152-3) 14.0 8-16 [facility]villeBlood Urea Spkldpqt5362-41-18 15:01:00* Test Item Value Reference Range Interpretation Comments Blood Urea Nitrogen (test code = 3094-0) 14 7-26 [facility]villeCreatinine2019-10-11 15:01:00* Test Item Value Reference Range Interpretation Comments Creatinine (test code = 2160-0) 0.82 0.57-1.11 [facility]villeBUN/Creatinine Ckwuk8520-63-64 15:01:00* Test Item Value Reference Range Interpretation Comments BUN/Creatinine Ratio (test code = 3097-3) 17 6-25 [facility] GreenvilleEstimat Glomerular Filtration Rate 2019-06-10 15:01:00* Test Item Value Reference Range Interpretation Comments Estimat Glomerular Filtration Rate (test code = 154504162) > 60 >60 Ranges were taken from the National Kidney Disease Education Program and the [facility] literature.Reference ranges:60 or greater: Gyeszc20-29 ( for 3 consecutive months): Chronic kidney disease 15 or less: Kidney failureHunt [facility] Medical Center at GreenvilleGlucose Hhzzm6019-54-57 15:01:00* Test Item Value Reference Range Interpretation Comments Glucose Level (test code = NKS9726) 123 74-118 H [facility]villeCalcium Qylwa2787-71-90 15:01:00* Test Item Value Reference Range Interpretation Comments Calcium Level (test code = 33321-1) 9.8 8.4-10.2 [facility]villeTotal Saiieqarz1476-12-76 15:01:00* Test Item Value Reference Range Interpretation Comments Total Bilirubin (test code = 1975-2) 0.4 0.2-1.2 [facility] GreenvilleAspartate Amino Transf (AST/SGOT) 2019-06-10 15:01:00* Test Item Value Reference Range Interpretation Comments Aspartate Amino Transf (AST/SGOT) (test code = Aspartate Amino Transf (AST/SGOT)) 25 5-34 [facility]villeAlanine Aminotransferase (ALT/SGPT) 2019-06-10 15:01:00* Test Item Value Reference Range Interpretation Comments Alanine Aminotransferase (ALT/SGPT) (test code = 1742-6) 20 0-55 [facility]villeTotal Vwjxvwe5733-63-05 15:01:00* Test Item Value Reference Range Interpretation Comments Total Protein (test code = 2885-2) 6.9 6.5-8.1 [facility]villeAlbumin2019-10-11 15:01:00* Test Item Value Reference Range Interpretation Comments Albumin (test code = 1751-7) 3.9 3.5-5.0 [facility]villeGlobulin2019-10-11 15:01:00* Test Item Value Reference Range Interpretation Comments Globulin (test code = 92472-1) 3.0 2.3-3.5 [facility]villeAlbumin/Globulin Krdht9041-58-83 15:01:00 * Test Item Value Reference Range Interpretation Comments Albumin/Globulin Ratio (test code = 1759-0) 1.3 0.8-2.0 [facility]villeAlkaline Miqebqorpra7966-30-67 15:01:00* Test Item Value Reference Range Interpretation Comments Alkaline Phosphatase (test code = 6768-6) 59 40-150 [facility]villeWhite Blood Nicsz7392-09-68 14:36:00* Test Item Value Reference Range Interpretation Comments White Blood Count (test code = 6690-2) 2.85 4.8-10.8 L [facility]villeRed Blood Hmgow7246-15-45 14:36:00* Test Item Value Reference Range Interpretation Comments Red Blood Count (test code = 789-8) 4.65 3.6-5.1 [facility]villeHemoglobin2019-10-11 14:36:00* Test Item Value Reference Range Interpretation Comments Hemoglobin (test code = 01888-4) 15.1 12.0-16.0 [facility]villeHematocrit2019-10-11 14:36:00* Test Item Value Reference Range Interpretation Comments Hematocrit (test code = 4544-3) 44.4 34.2-44.1 H [facility] GreenvilleMean Corpuscular Roerfe3868-62-20 14:36:00* Test Item Value Reference Range Interpretation Comments Mean Corpuscular Volume (test code = 787-2) 95.5 81-99 [facility]villeMean Corpuscular Snjqtwxbef8639-90-13 14:36:00* Test Item Value Reference Range Interpretation Comments Mean Corpuscular Hemoglobin (test code = 785-6) 32.5 28-32 H [facility]villeMean Corpuscular Hemoglobin Concent 2019-06-10 14:36:00* Test Item Value Reference Range Interpretation Comments Mean Corpuscular Hemoglobin Concent (test code = 786-4) 34.0 31-35 [facility] GreenvilleRed Cell Distribution Xssbv0788-04-78 14:36:00* Test Item Value Reference Range Interpretation Comments Red Cell Distribution Width (test code = 19051-6) 12.5 11.7 -14.4 [facility] GreenvillePlatelet Rthcy6140-87-25 14:36:00* Test Item Value Reference Range Interpretation Comments Platelet Count (test code = 777-3) 103 140-360 L [facility]villeNeutrophils (%) (Auto)2019-06-10 14:36:00 * Test Item Value Reference Range Interpretation Comments Neutrophils (%) (Auto) (test code = 53477-1) 39.1 38.7-80.0 [facility]villeLymphocytes (%) (Auto)2019-06-10 14:36:00 * Test Item Value Reference Range Interpretation Comments Lymphocytes (%) (Auto) (test code = 736-9) 48.8 18.0-39.1 H [facility]villeMonocytes (%) (Auto)2019-06-10 14:36:00* Test Item Value Reference Range Interpretation Comments Monocytes (%) (Auto) (test code = 5905-5) 8.8 4.4-11.3 [facility]villeEosinophils (%) (Auto)2019-06-10 14:36:00 * Test Item Value Reference Range Interpretation Comments Eosinophils (%) (Auto) (test code = 713-8) 2.5 0.0-6.0 [facility]villeBasophils (%) (Auto)2019-06-10 14:36:00* Test Item Value Reference Range Interpretation Comments Basophils (%) (Auto) (test code = 706-2) 0.4 0.0-1.0 [facility]villeIM GRANULOCYTES %2019-06-10 14:36:00* Test Item Value Reference Range Interpretation Comments IM GRANULOCYTES % (test code = IM GRANULOCYTES %) 0.4 0.0- 1.0 [facility]villeNeutrophils # (Auto)2019-06-10 14:36:00* Test Item Value Reference Range Interpretation Comments Neutrophils # (Auto) (test code = 751-8) 1.1 2.1-6.9 L [facility]villeLymphocytes # (Auto)2019-06-10 14:36:00* Test Item Value Reference Range Interpretation Comments Lymphocytes # (Auto) (test code = 50505-7) 1.4 1.0-3.2 [facility]villeMonocytes # (Auto)2019-06-10 14:36:00* Test Item Value Reference Range Interpretation Comments Monocytes # (Auto) (test code = 742-7) 0.3 0.2-0.8 [facility]villeEosinophils # (Auto)2019-06-10 14:36:00* Test Item Value Reference Range Interpretation Comments Eosinophils # (Auto) (test code = 711-2) 0.1 0.0-0.4 [facility]villeBasophils # (Auto)2019-06-10 14:36:00* Test Item Value Reference Range Interpretation Comments Basophils # (Auto) (test code = 704-7) 0.0 0.0-0.1 [facility] GreenvilleAbsolute Immature Granulocyte (auto 2019-06-10 14:36:00* Test Item Value Reference Range Interpretation Comments Absolute Immature Granulocyte (auto (litzy t code = Absolute Immature Granulocyte (auto) 0.01 0-0.1 [facility] JUAN MIGUEL CAD DIGITAL 2018-09-14 15:08:30 - SCR MAMM BILATERAL JUAN MIGUEL CAD DIGITALBILATERAL DIGITAL SCREENING MAMMOGRAM 3D/2D WITH CAD: 09/11/2018CLINICAL: Asymptomatic. Digital breast tomosynthesis was performed in addition to routine CC and MLO views. Current mammographic images were evaluated by either a [employer] M-Vu or a [employer] Image[employer]er CAD (computer aided detection system). Comparison is made to exams dated 07/20/2017 mammogram, 05/29/2016 mammogram, and 04/24/2015 mammogram - [facility]. The tissue of both breasts is predominantly fatty. No suspicious mass, architectural distortion, malignant type calcification, or lymph node abnormality detected. Breast architecture is stable compared to prior exams.IMPRESSION: NEGATIVEThere is no mammographic evidence of malignancy. Resume annual screening mammography in one year. Kelsey munoz/penrad:09/14/2018 15:08:30 Coding Technician: Heather JUNG, [facility] sent: BIRADS 1-2 Normal Mammogram BI-RADS: 1 Negative CHEST 2 [id number] 14:33:00 [place] [address] Patient Name: TOMÁS MARIANO MR #: [id number] : 1945 Age/Sex: 72/F Req #: [id number] Adm Physician: Ordered by: BALBIR SANDERS [employer] STATISTICAL PROGRAMMER Report #: [id number] Location: ER Room/Bed: Procedure: [id number] DX/CHEST 2 VIEWS Exam Date: 06/17/18 Exam Time: 13 52 REPORT STATUS: Signed EXAM: X R CHEST 2 VIEWS DATE: 06/17/2018 12:33 PM INDICATION: Pain, nausea COMPARISON: None FINDINGS: Lines and Tubes: None Heart and Medi astinum: No acute cardiomediastinal findings. Lungs and Pleura: No signific ant pleural effusion, pneumothorax, or focal consolidation. Bones and Sof t Tissues: No acute findings. IMPRESSION: 1. No acute cardiopulmonary f indings. Signed by: Dr. Malka Adams MD on 06/17/2018 2:33 PM Dicta jayden By: MALKA ADAMS MD 32 COPY TO: KEYSHAWN SANDERS NP MRI BRAIN [id number] 17:39:00 [place] [address] Patient Name: TOMÁS MARIANO MR #: [id number] : 1945 Age/Sex: 72/F Req #: [id number] Adm Physician: Ordered by: JOHNATHAN BAUTISTA M.D. Report #: [id number] Location: MRI Room/Bed: Procedure: [id number] MRI/MRI BRAIN WO Ex am Date: Exam Time: REPORT STATUS: Signed Exam: Brain MRI without IV contrast History: Headache, migraine Comparison s tudies: Head CT of 04/02/2018 and 02/27/2009. Technique: Sagittal and axial T2 FS, axial DWI, axial T2*GRE, axial T1 FLAIR and axial coronal T2 FLAIR. Intravenous contrast: None Findings: Scalp: Normal in signal. No valdez s. Bone marrow: Normal in signal intensity. Brain sulci: Mildly prominent . Ventricles: Mild compensatory dilatation. No hydrocephalus. Extra axial sp aces: No mass, no fluid collection. Parenchyma: No mass, hemorrhage or ac lower [place] ischemia. A few scattered and mildly confluent T2 FLAIR hyperintense foci in the supratentorial white matter are nonspecific most compatible with chroni c microvascular ischemic changes. Small chronic lacunar infarct in the right c erebellum. Suprasellar region: No abnormalities. Craniocervical junction: Patent foramen magnum. No Chiari malformation. Vessels: Normal flow-voids in the arteries and sinuses. IMPRESSION: 1. Mild generalized volume loss. 2. Mild to moderate chronic microvascular ischemic changes. 3. Small chronic right cerebellar lacunar infarct. Signed by: Franki Morales on 05/14/2018 5:46 PM Dictated By: IRMA ROMERO MD Electronically S igned By: IRMA ROMERO MD on 05/14/181745 Transcribed By: KERI on 1745 COPY TO: JOHNATHAN BAUTISTA MD Valproic Acid (Depakene) [id number] 18:09:00* Test Item Value Reference Range Interpretation Comments Valproic Acid (Depakene) Level (test code = 4086-5) 69 50 -100 [facility]villeErythrocyte Sedimentation [id number] 16:43:00* Test Item Value Reference Range Interpretation Comments Erythrocyte Sedimentation Rate (test code = 4537-7) 2 0- 20 [facility] GreenvilleThyroid Stimulating Hormone (TSH) 2018-04-02 16:42:00* Test Item Value Reference Range Interpretation Comments Thyroid Stimulating Hormone (TSH) (test code = 00883-6) 1.856 0.350-4.940 [facility] GreenvilleCT BRAIN [id number] 16:39:00 [facility] [address] [address] Patient Name: TOMÁS MARIANO MR #: [id number] : 1945 Age/Sex: 72/F Req #: [id number] Adm Physician: Ordered by: SYED GILBERT MD Report #: [id number] Location: ER Room /Bed: Procedure: [id number] CT/CT BRAIN WO Exam Date: 04/02/18 Exam Time: 1552 REPORT STATUS: Signed ADDENDUM #1 Dose modulation, iterative reconstruct ion, and/or weight based adjustment of the mA/kV was utilized to reduce the ra diation dose to as low as reasonably achievable. Signed by: DR Severino Landry M.D. on 04/27/2018 7:44 PM ORIGINAL REPORT H istory:Migraines Comparison studies:CT of the head 02/27/2009 Technique: Axial images were obtained from the skull base to the vertex. Coronal and sag ittal images reconstructed from the axial data. Intravenous contrast: None Findings: Scalp/skull: No abnormalities. Extra-axial spaces: No masses. No fluid collections. Brain sulci: Mildly prominent. Ventricles: Mild compensatory dilatation. No hydrocephalus. Parenchyma: Scattered small hypodensities in the supratentorial white matter are small vessel ische lindsey changes. No masses, hemorrhage, acute or chronic cortical vascular insults . Sellar/suprasellar region: No abnormalities. Craniocervical junction: P atent foramen magnum. No Chiari one malformation. Incidental findings: A therosclerotic calcifications in the carotid siphons . Impression: No acute abnormalities. Chronic findings: 1. Mild generalized volume loss. 2. Mild supratentorial white matter small vessel ischemic changes. Signed by: DR Severino Landry M.D. on 04/02/2018 4:44 PM Dictated By: SEVERINO PERALTA MD 1 944 Transcribed By: KERI on 04/02/18 1644 COPY TO: SYED GILBERT Sodium [id number] 16:24:00* Test Item Value Reference Range Interpretation Comments Sodium Level (test code = 2951-2) 138 136-145 [facility]villePotassium Jvkqv3986-43-34 16:24:00* Test Item Value Reference Range Interpretation Comments Potassium Level (test code = 2823-3) 3.9 3.5-5.1 [facility]villeChloride Ftfbj8961-41-47 16:24:00* Test Item Value Reference Range Interpretation Comments Chloride Level (test code = 2075-0) 100 98-107 [facility] GreenvilleCarbon Dioxide Slpth4312-24-52 16:24:00* Test Item Value Reference Range Interpretation Comments Carbon Dioxide Level (test code = 2028-9) 29 22-29 [facility] GreenvilleAnion Lqw3493-31-17 16:24:00* Test Item Value Reference Range Interpretation Comments Anion Gap (test code = 25722-7) 12.9 8-16 [facility] GreenvilleBlood Urea Rrnfkybg6911-69-67 16:24:00* Test Item Value Reference Range Interpretation Comments Blood Urea Nitrogen (test code = 3094-0) 21 7-26 [facility] GreenvilleCreatinine2018-08-03 16:24:00* Test Item Value Reference Range Interpretation Comments Creatinine (test code = 2160-0) 0.85 0.57-1.11 [facility]villeBUN/Creatinine Nuvsq4984-07-93 16:24:00* Test Item Value Reference Range Interpretation Comments BUN/Creatinine Ratio (test code = 3097-3) 25 6-25 [facility] GreenvilleEstimat Glomerular Filtration Rate 2018-04-02 16:24:00* Test Item Value Reference Range Interpretation Comments Estimat Glomerular Filtration Rate (test code = 91106-2) 60- >60 Ranges were taken from the National Kidney Disease Education Program and the [facility] literature.Reference ranges:60 or greater: Mkwwce86-28 ( for 3 consecutive months): Chronic kidney disease 15 or less: Kidney failureH[facility] Medical Center at GreenvilleGlucose Pwwuy6901-66-39 16:24:00* Test Item Value Reference Range Interpretation Comments Glucose Level (test code = HPU7714) 87 74-118 [facility] GreenvilleCalcium Kfwff8206-21-27 16:24:00* Test Item Value Reference Range Interpretation Comments Calcium Level (test code = 42638-8) 9.5 8.4-10.2 [facility] GreenvilleTotal Ehsjsefku3406-17-18 16:24:00* Test Item Value Reference Range Interpretation Comments Total Bilirubin (test code = 1975-2) 0.3 0.2-1.2 [facility] GreenvilleAspartate Amino Transf (AST/SGOT) 2018-04-02 16:24:00* Test Item Value Reference Range Interpretation Comments Aspartate Amino Transf (AST/SGOT) (test code = Aspartate Amino Transf (AST/SGOT)) 22 5-34 [facility] GreenvilleAlanine Aminotransferase (ALT/SGPT) 2018-04-02 16:24:00* Test Item Value Reference Range Interpretation Comments Alanine Aminotransferase (ALT/SGPT) (test code = 1742-6) 24 0-55 [facility] GreenvilleTotal Edokppo2247-20-18 16:24:00* Test Item Value Reference Range Interpretation Comments Total Protein (test code = 2885-2) 7.1 6.5-8.1 [facility] GreenvilleAlbumin2018-08-03 16:24:00* Test Item Value Reference Range Interpretation Comments Albumin (test code = 1751-7) 4.0 3.5-5.0 [facility] GreenvilleGlobulin2018-08-03 16:24:00* Test Item Value Reference Range Interpretation Comments Globulin (test code = 87146-6) 3.1 2.3-3.5 [facility] GreenvilleAlbumin/Globulin Vbfox8781-68-35 16:24:00 * Test Item Value Reference Range Interpretation Comments Albumin/Globulin Ratio (test code = 1759-0) 1.3 0.8-2.0 [facility] GreenvilleAlkaline Kcgdjyjtzni2800-48-63 16:24:00* Test Item Value Reference Range Interpretation Comments Alkaline Phosphatase (test code = 6768-6) 69 40-150 [facility] GreenvilleUrine ZTB4769-13-96 16:07:00* Test Item Value Reference Range Interpretation Comments Urine WBC (test code = 5821-4) NONE 0-5 [facility] GreenvilleUrine TFJ9215-28-48 16:07:00* Test Item Value Reference Range Interpretation Comments Urine RBC (test code = 64229-6) NONE 0-5 [facility] GreenvilleUrine Gvnawrgg9269-03-12 16:07:00* Test Item Value Reference Range Interpretation Comments Urine Bacteria (test code = 29186-1) NONE NONE [facility] GreenvilleUrine Epithelial Akmfg9523-34-46 16:07:00 * Test Item Value Reference Range Interpretation Comments Urine Epithelial Cells (test code = 89392-7) RARE NONE [facility] GreenvilleUrine Utljp8366-15-20 15:59:00* Test Item Value Reference Range Interpretation Comments Urine Color (test code = 5778-6) YELLOW YELLOW [facility] GreenvilleUrine Vggtapu7359-34-49 15:59:00* Test Item Value Reference Range Interpretation Comments Urine Clarity (test code = 56241-0) CLEAR CLEAR [facility] GreenvilleUrine Specific Uxyieeq0172-43-75 15:59:00 * Test Item Value Reference Range Interpretation Comments Urine Specific [place] (test code = 5811-5) 1.010 1.010-1.02 5 [facility] GreenvilleUrine iA3963-93-38 15:59:00* Test Item Value Reference Range Interpretation Comments Urine pH (test code = 47239-1) 7 5-7 [facility]villeUrine Leukocyte Ymfoyent5569-03-47 15:59:00* Test Item Value Reference Range Interpretation Comments Urine Leukocyte Esterase (test code = 5799-2) NEGATIVE NEGATIVE [facility] GreenvilleUrine Jwwhtba3890-03-39 15:59:00* Test Item Value Reference Range Interpretation Comments Urine Nitrite (test code = 07873-5) NEGATIVE NEGATIVE [facility] GreenvilleUrine Lmoqnov9347-23-22 15:59:00* Test Item Value Reference Range Interpretation Comments Urine Protein (test code = 5804-0) NEGATIVE NEGATIVE [facility] GreenvilleUrine Glucose (UA)2018-04-02 15:59:00* Test Item Value Reference Range Interpretation Comments Urine Glucose (UA) (test code = 2349-9) NEGATIVE NEGATIVE [facility] GreenvilleUrine Iafagzx7579-28-92 15:59:00* Test Item Value Reference Range Interpretation Comments Urine Ketones (test code = 60668-2) NEGATIVE NEGATIVE [facility] GreenvilleUrine Tskykmrystdd9417-02-70 15:59:00* Test Item Value Reference Range Interpretation Comments Urine Urobilinogen (test code = 80865-3) 0.2 0.2-1 [facility] GreenvilleUrine Soxfvsktg6865-26-44 15:59:00* Test Item Value Reference Range Interpretation Comments Urine Bilirubin (test code = 1978-6) NEGATIVE NEGATIVE [facility] GreenvilleUrine Etlsu7761-87-42 15:59:00* Test Item Value Reference Range Interpretation Comments Urine Blood (test code = 71216-9) NEGATIVE NEGATIVE [facility] GreenvilleWhite Blood Cnrnn9646-79-11 15:50:00* Test Item Value Reference Range Interpretation Comments White Blood Count (test code = 6690-2) 4.94 4.8-10.8 [facility] GreenvilleRed Blood Inrvr7508-44-47 15:50:00* Test Item Value Reference Range Interpretation Comments Red Blood Count (test code = 789-8) 5.14 3.6-5.1 H [facility] GreenvilleHemoglobin2018-08-03 15:50:00* Test Item Value Reference Range Interpretation Comments Hemoglobin (test code = 97707-3) 16.6 12.0-16.0 H [facility]villeHematocrit2018-08-03 15:50:00* Test Item Value Reference Range Interpretation Comments Hematocrit (test code = 4544-3) 49.1 34.2-44.1 H [facility] GreenvilleMean Corpuscular Byxbly7949-67-68 15:50:00* Test Item Value Reference Range Interpretation Comments Mean Corpuscular Volume (test code = 787-2) 95.5 81-99 [facility]villeMean Corpuscular Lrqcavjdic0751-50-29 15:50:00* Test Item Value Reference Range Interpretation Comments Mean Corpuscular Hemoglobin (test code = 785-6) 32.3 28-32 H [facility] GreenvilleMean Corpuscular Hemoglobin Concent 2018-04-02 15:50:00* Test Item Value Reference Range Interpretation Comments Mean Corpuscular Hemoglobin Concent (test code = 786-4) 33.8 31-35 [facility] GreenvilleRed Cell Distribution Hzkln0635-85-78 15:50:00* Test Item Value Reference Range Interpretation Comments Red Cell Distribution Width (test code = 08219-8) 12.3 11.7 -14.4 [facility] GreenvillePlatelet Yayun0143-38-27 15:50:00* Test Item Value Reference Range Interpretation Comments Platelet Count (test code = 777-3) 167 140-360 [facility] GreenvilleNeutrophils (%) (Auto)2018-04-02 15:50:00 * Test Item Value Reference Range Interpretation Comments Neutrophils (%) (Auto) (test code = 63193-8) 41.5 38.7-80.0 [facility] GreenvilleLymphocytes (%) (Auto)2018-04-02 15:50:00 * Test Item Value Reference Range Interpretation Comments Lymphocytes (%) (Auto) (test code = 736-9) 47.2 18.0-39.1 H [facility] GreenvilleMonocytes (%) (Auto)2018-04-02 15:50:00* Test Item Value Reference Range Interpretation Comments Monocytes (%) (Auto) (test code = 5905-5) 8.5 4.4-11.3 [facility]villeEosinophils (%) (Auto)2018-04-02 15:50:00 * Test Item Value Reference Range Interpretation Comments Eosinophils (%) (Auto) (test code = 713-8) 1.6 0.0-6.0 [facility]villeBasophils (%) (Auto)2018-04-02 15:50:00* Test Item Value Reference Range Interpretation Comments Basophils (%) (Auto) (test code = 706-2) 0.4 0.0-1.0 [facility] GreenvilleIM GRANULOCYTES %2018-04-02 15:50:00* Test Item Value Reference Range Interpretation Comments IM GRANULOCYTES % (test code = IM GRANULOCYTES %) 0.8 0.0- 1.0 [facility] GreenvilleNeutrophils # (Auto)2018-04-02 15:50:00* Test Item Value Reference Range Interpretation Comments Neutrophils # (Auto) (test code = 751-8) 2.1 2.1-6.9 [facility] GreenvilleLymphocytes # (Auto)2018-04-02 15:50:00* Test Item Value Reference Range Interpretation Comments Lymphocytes # (Auto) (test code = 25180-0) 2.3 1.0-3.2 [facility] GreenvilleMonocytes # (Auto)2018-04-02 15:50:00* Test Item Value Reference Range Interpretation Comments Monocytes # (Auto) (test code = 742-7) 0.4 0.2-0.8 [facility]villeEosinophils # (Auto)2018-04-02 15:50:00* Test Item Value Reference Range Interpretation Comments Eosinophils # (Auto) (test code = 711-2) 0.1 0.0-0.4 [facility]villeBasophils # (Auto)2018-04-02 15:50:00* Test Item Value Reference Range Interpretation Comments Basophils # (Auto) (test code = 704-7) 0.0 0.0-0.1 [facility] GreenvilleAbsolute Immature Granulocyte (auto 2018-04-02 15:50:00* Test Item Value Reference Range Interpretation Comments Absolute Immature Granulocyte (auto (litzy t code = Absolute Immature Granulocyte (auto) 0.04 0-0.1 [facility] GreenvilleInfluenza Virus Types A,B Antigen 2017-08-23 11:17:00* Test Item Value Reference Range Interpretation Comments Influenza Virus Types A,B Antigen (test code = 65979-2) NEGATIVE NEGATIVE [facility] GreenvilleCHEST 2 V[facility] [address] [place] [address] Patient Name: TOMÁS MARIANO MR #: [id number] : 1945 Age/Sex: 72/F Req #: [id number] Adm Physician: Ordered by: SYED GILBERT MD Report #: [id number] Location: ER Room/Bed: Procedure: [id number] DX/CHEST 2 VIEWS Exam Will e: Exam Time: REPORT STATUS: Signed EXAM: XR CHEST 2 VIEWS DATE: 08/23/2017 9:41 AM INDICATION: Fever YAN RISON: 08/16/2014 FINDINGS: Lines and Tubes: None Heart and Media stinum: No acute findings. Lungs and Pleura: No acute findings. Bones and Soft Tissues: No acute findings. IMPRESSION: 1. No acute cardiopulm onary findings. Signed by: Dr. Malka Adams MD on 08/23/2017 10:18 AM Dictated By: MALKA ADAMS MD 1018 Transcribed By: KERI on 08/23/17 1018 COPY TO: SYED GILBERT MD
--- OUTSIDE RECORDS SUMMARY | 2020-04-06 09:26 | XMS REPORT | Clinical Summary ---
Author Author [facility] Organization [facility] Address Unknown Phone Unavailable Care Team Providers Care Wire Splicer Name Role Phone Ronnie Flores MD PCP Allergies Comments Active Allergy Reactions Severity Noted Date Acetaminophen-Codeine 07/09/2017 Sulfamethoxazole-Trimetho 07/09/2017 prim Ciprofloxacin 07/09/2017 Duloxetine 07/09/2017 Meperidine 07/09/2017 Amitriptyline 07/09/2017 Iodine 07/09/2017 Nitrofurantoin 07/09/2017 Macrocrystal Butorphanol Tartrate 07/09/2017 Pentazocine Lactate 07/09/2017 Gatifloxacin 07/09/2017 Tramadol 07/09/2017 Sertraline 07/09/2017 Medications End Date Status Medication Sig Dispensed Refills Start Date Active divalproex (DEPAKOTE) 250 1 tablet 1 06/01/201 MG EC tablet daily. 7 Active propranolol (INDERAL) 40 Take 40 mg by 0 05/06 MG tablet mouth once 7 daily. Active aspirin (ECOTRIN) 81 MG Take 81 mg by 0 enteric coated tablet mouth daily. Active diazePAM (VALIUM) 2 MG Take 2 mg by 0 tablet mouth as needed for anxiety. Active acetaminophen (TYLENOL) Take 500 mg 0 500 MG tablet by mouth as needed for mild pain. Active senna (SENOKOT) 8.6 mg Take 2 0 tablet tablets by mouth daily. Active docusate sodium (COLACE) Take 100 mg 0 100 MG capsule by mouth 2 (two) times a day. Active SIMETHICONE (GAS-X ORAL) Take 1 tablet 0 by mouth as needed. Active multivitamin (THERAGRAN) Take 1 tablet 0 tablet by mouth daily. Active tiZANidine (ZANAFLEX) 2 Take 1/2-1 po 60 tablet 2 MG tabletIndications: tid prn 7 Migraine without aura and vertigo or without status headache migrainosus, not intractable, Vertigo Active butalbital-acetaminophen- Take 1 by 20 tablet 0 caff (FIORICET, ESGIC) mouth every 6 7 50-325-40 mg per tablet hours when necessary headache Active Problems Problem Noted Date Migraine without aura and without status migrainosus, not intractable 07/09/2017 Vertigo 07/09/2017 History of cerebellar stroke 07/09/2017 Anxiety 07/09/2017 Family History Medical History Relation Name Comments Heart disease Father Hypertension Father Diabetes Mother Heart disease Mother Hypertension Mother Migraines Mother Pancreatic cancer Mother Stroke Mother Relation Name Status Comments Father (Age 78) Mother (Age 65) Social History Date Tobacco Use Types Packs/Day Years Used Quit: 2007 Former Smoker Drinks/Week oz/Week Comments Alcohol Use No Sex Assigned at Date Recorded Not on file Industry Job Start Date Occupation Not on file Not on file Not on file Travel End Travel History Travel Start No recent travel history available. 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
[2020-04-06] MEDS ORDERED: DIAZEPAM 5 MG TAB PO ONE (09:30)
[2020-04-06] MEDS ORDERED: MORPHINE SULFATE INJ 4 MG/ML INJ 1ML IV PRN (10:30)
--- NOTE | 2020-04-06 10:32 | NUR ---
ER MD AT BEDSIDE TO REASSESS PT'S PAIN. PT STATES PAIN LEVEL IS 9/10. RECEIVED ORDERS. ORDERS READ BACK AND VERIFIED.
--- NOTE | 2020-04-06 10:38 | Diagnostic Imaging Report ---
Examination: CT LUMBAR SPINE WO CONTRAST History: Back pain that radiates to the upper back. Comparison studies: None Technique: Axial images were obtained through the lumbar spine from T12. Coronal and sagittal reconstructions obtained from the axial data. Dose modulation, iterative reconstruction, and/or weight based adjustment of the mA/kV was utilized to reduce the radiation dose to as low as reasonably achievable. Intravenous contrast: None Findings: The usual 5 non-rib bearing lumbar vertebral bodies are present. Alignment: Normal lordosis. Leftward curvature centered at L3. Soft tissues: Atherosclerotic calcification of the abdominal aorta. Surgical clips in the gallbladder fossa from prior cholecystectomy. Paraspinal muscles: No abnormalities. Sacroiliac joints: Mild vacuum phenomenon bilaterally due to degenerative changes. Vertebrae: No fractures, infection or neoplasm. Degenerative changes: L1-L2: No abnormalities. L2-L3: No abnormalities. L3-L4: Mild diffuse disc bulge. No foraminal or canal stenosis. L4-L5: Mild diffuse disc bulge. No foraminal or canal stenosis. L5-S1: Mild diffuse disc bulge. No foraminal or canal stenosis. IMPRESSION: 1. No acute abnormality, specifically, no acute fracture. 2. Leftward curvature of the spine centered at L3. 3. Degenerative disks from L3-L4 through L5-S1 without canal or foraminal stenosis. Signed by: Dr. Rebecca Gonzalez M.D. on 04/06/2020 10:35 AM
[2020-04-06 11:02] LABS: BASOPHILS % 0.2 % (0.0-1.0); EOSINOPHILS # (AUTO) 0.1 (0.0-0.4); HEMATOCRIT 48.6 % (34.2-44.1); HEMOGLOBIN 15.9 g/dL (12.0-16.0); LYMPHOCYTES # (AUTO) 1.7 (1.0-3.2); LYMPHOCYTES % 28.9 % (18.0-39.1); MEAN CORPUSCULAR HEMOGLOBIN 31.2 pg (28-32); MEAN CORPUSCULAR HGB CONC 32.7 g/dL (31-35); MEAN CORPUSCULAR VOLUME 95.5 fL (81-99); MONOCYTES # (AUTO) 0.3 (0.2-0.8); MONOCYTES % 4.4 % (4.4-11.3); NEUTROPHILS # (AUTO) 3.8 (2.1-6.9); NEUTROPHILS % 65.2 % (38.7-80.0); PLATELET COUNT 142 x10e3/uL (140-360); RED BLOOD COUNT 5.09 x10e6/uL (3.6-5.1); RED CELL DISTRIBUTION WIDTH 12.2 % (11.7-14.4)
--- NOTE | 2020-04-06 11:08 | NUR ---
rec'd report from geraldine miranda for continuity of care
--- NOTE | 2020-04-06 11:18 | NUR ---
iv dc'c intact to the left hand
--- NOTE | 2020-04-06 11:19 | NUR ---
mask placed on the pt and emesis bag within reach
[2020-04-06 11:26] LABS: ALANINE AMINOTRANSFERASE 24 IU/L (0-55); ALBUMIN 3.7 g/dL (3.5-5.0); ALBUMIN/GLOBULIN RATIO 1.3 (0.8-2.0); ALKALINE PHOSPHATASE 59 IU/L (40-150); ANION GAP 13.5 mmol/L (8-16); BLOOD UREA NITROGEN 20 mg/dL (7-26); BUN/CREATININE RATIO 24 (6-25); CALCIUM 9.1 mg/dL (8.4-10.2); CARBON DIOXIDE 26 mmol/L (22-29); CHLORIDE 106 mmol/L (98-107); CREATINE KINASE 56 IU/L (29-168); CREATININE, SERUM 0.84 mg/dL (0.57-1.11); EST GLOMERULAR FILTRATION RATE > 60 ML/MIN (60-); GLUCOSE 111 mg/dL (74-118); POTASSIUM 4.5 mmol/L (3.5-5.1); SODIUM 141 mmol/L (136-145)
--- NOTE | 2020-04-06 12:05 | NUR ---
#20 g to the left ac
--- OUTSIDE RECORDS SUMMARY | 2020-04-06 12:31 | XMS REPORT | Clinical Summary ---
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
--- OUTSIDE RECORDS SUMMARY | 2020-04-06 12:31 | XMS REPORT | Continuity of Care Document ---
Author Author [facility] t Organization [facility] t Address [address] [place] [address] Phone Unavailable Care Team Providers Care Fraud Prevention Analyst Name Role Phone LORE DUARTE, ERIN PCP Misty KUMAR Attphys Unavailable Rin BAUTISTA Attphys Unavailable Gunner GILBERT Attphys Unavailable Payers Payer Name Policy Type Policy Number Effective Date Expiration Date [facility] [id number] [facility] Problems Condition Name Condition Details Condition Category Status Onset Date Resolution Date Last Treatment Date Treating Clinician Comments Source Migraine without aura and without status migrainosus, not intractable Migraine without aura and without status migrainosus, not intractable Disease Active 2017-07-09 00:00:00 [place] [facility] Vertigo Vertigo Disease Active 2017-07-09 00:00:00 [place] [facility] History of cerebellar stroke History of cerebellar stroke Disease Active 2017-07-09 00:00:00 [place] [facility] Anxiety Anxiety Disease Active 2017-07-09 00:00:00 [place] [facility] Allergies, Adverse Reactions, Alerts Allergy Name Allergy Type Status Severity Reaction(s) Onset Date Inacti ve Date Treating Clinician Comments Source Codeine Allergy to Substance Active 2018-06-17 00:00:00 [facility] Topiramate Allergy to Substance Active Mild Stuttering, "si lly" 2018-06-17 00:00:00 [facility] Iodine Allergy to Substance Active 2018-04-02 00:00:00 [facility] Pentazocine Allergy to Substance Active 2018-04-02 00:00:00 [facility] Tramadol Allergy to Substance Active 2018-04-02 00:00:00 [facility] Amitriptyline Allergy to Substance Active 2018-04-02 00:00: 00 [facility] Sertraline Allergy to Substance Active 2018-04-02 00:00:00 [facility] Duloxetine Allergy to Substance Active 2018-04-02 00:00:00 [facility] meperidine HCl Propensity to adverse reactions Active VERTIGO 2017-08-23 00:00:00 [facility] butorphanol tartrate Propensity to adverse reactions Active HALLUCINATE 2017-08-23 00:00:00 [facility] Nitrofurantoin Macrocrystal Allergy to Substance Active 2017-08-23 00:00:00 [facility] ciprofloxacin HCl Allergy to Substance Active 2017-08-23 00 :00:00 [facility] Sulfamethoxazole Allergy to Substance Active 2017-08-23 00: 00:00 [facility] Trimethoprim Allergy to Substance Active 2017-08-23 00:00:0 0 [facility] Gatifloxacin Allergy to Substance Active 2017-08-23 00:00:0 0 [facility] EGGS Allergy to Substance Active 2017-08-23 00:00:00 [facility] Acetaminophen-Codeine Propensity to adverse reactions to drug [...] to drug A ctive 2017-07-09 00:00:00 Gabo Ifeoma krishnamurthy Butorphanol Tartrate Propensity to adverse reactions to [...] drug Active 2017-07-09 00:00:00 Gabo Acuna t Family History Family Member Diagnosis Comments Start Date Stop Date Source Natural father Heart disease [place] [employer] Natural father Hypertension [place] [employer] Natural mother Diabetes [facility] [facility] Natural mother Heart disease [place] [facility] Natural mother Hypertension Gabo Martiist Natural mother Migraines [place] [facility] Natural mother Pancreatic cancer Cholo Lisa Natural mother Stroke [facility] Social History Social Habit Start Date [...] Tab let 2018-06-17 00:00:00 Yes Balbir Sanders Donor Relations Officer 12.5 Every 6 Cholo rs as needed for Nausea [facility] gupjkrugje-qoffpskaozpaa-lxnw (FIORICET, ESGIC) 50-325-40 mg per tablet 2017-08-12 [...] 40 mg by mouth once daily. Gabo Methjossue dist Aspirin 81 Mg Tab.chew Aspirin 81 Mg Tab.chew Yes 81 Daily [facility] Calcium 500 Mg Tablet Calcium 500 Mg Tablet Yes 250 Daily [facility] Cholecalciferol (Vitamin D) 400 Unit Capsule Cholecalc iferol (Vitamin D) 400 Unit Capsule Yes 1 Daily [facility] Cranberry Fruit (Cranberry) 450 Mg Tablet Cranberry Fr uit (Cranberry) 450 Mg Tablet Yes 500 Daily [facility] Diazepam (Valium) 2 Mg Tablet Diazepam (Valium) 2 Mg Tablet Yes 1 As Needed [facility] Divalproex Sodium (Depakote) 250 Mg Tablet. Divalpro ex Sodium (Depakote) 250 Mg Tablet. Yes 3 Daily [facility] Isometheptene/Acetaminoph/Caff (Prodrin Caplet) 1 Each Tablet Isometheptene/Acetaminoph/Caff (Prodrin Caplet) 1 Each Tablet Ye s 1 As Needed [facility] Metamacil Metamacil Yes Daily [facility] Patricia Patricia Yes 2 [facility] Propranolol Hcl (Inderal) 60 Mg Tablet Propranolol Hcl (Inderal) 60 Mg Tablet Yes 1 Daily [facility] Sennosides/Docusate Sodium (Senna-Docusate Sodium Tabl et) 1 Each Tablet Sennosides/Docusate Sodium (Senna-Docusate Sodium Tablet) 1 Each Tablet Yes 8 [facility] Procedures This patient has no known procedures. Plan of Care Planned Activity Planned Date Details Comments Source Future Scheduled Test 2020-03-31 00:00:00 INFLUENZA VACCINE [code = INFLUENZA VACCINE] [facility] Scheduled Test 2008 00:00:00 65+ PNEUMOCOCCAL V ACCINE (1 of 2 - PCV13) [code = 65+ PNEUMOCOCCAL VACCINE (1 of 2 - PCV13)] [facility] Scheduled Test 1993 00:00:00 COLONOSCOPY SCREEN ING [code = COLONOSCOPY SCREENING] [facility] Scheduled Test 1993 00:00:00 SHINGLES VACCINES (#1) [code = SHINGLES VACCINES (#1)] [facility] Encounters Start Date/Time End Date/Time Encounter Type Admission Type Attendi [facility] Care Department Encounter ID Source 2019-06-10 13:14:00 2019-06-10 17:42:00 Departed Emergency Room [address] [facility] [id number] [facility] 2018-04-02 14:38:00 2018-04-02 19:02:00 Departed Emergency Room [address] [facility] [id number] [facility] 2017-08-23 09:28:00 2017-08-23 14:19:00 Departed Emergency Room ER SYED [facility]IL[facility] [id number] [facility] Results Test Description Test Time Test Comments Results Result Comments Source CT LUMBAR SPINE WO 2020-04-06 10:23:00 [facility] [address] [address] Patient Name: TOMÁS MARIANO MR #: [id number] : 1945 Age/Sex: 74/F Req #: [id number] Adm Physician: Ordered by: EDDI KUMAR DO Report #: [id number] Location: ER Room/Bed: Procedure: [id number] CT/CT LUMBAR SPINE WO Exam Date: 04/06/20 Exam Time: 939 REPORT STATUS: Signed Examination: CT LUMBAR SPINE WO CONTRAST History: Back pain that radiates to the upper back. Comparison studies: None Technique: Axial images were obtained through the lumbar spine from T12. Coronal and sagittal reconstructions obtained from the axial data. Dose modulation, iterative reconstruction, and/or weight based adjustment of the mA/kV was utilized to reduce the radiation dose to as low as reasonably achievable. Intravenous contrast: None Findings: The usual 5 non-rib bearing lumbar vertebral bodies are present. Alignment: Normal lordosis. Leftward curvature centered at L3. Soft tissues: Atherosclerotic calcification of the abdominal aorta. Surgical clips in the gallbladder fossa from prior cholecystectomy. Paraspinal muscles: No abnormalities. Sacroiliac joints: Mild vacuum phenomenon bilaterally due to degenerative changes. Vertebrae: No fractures, infection or neoplasm. Degenerative changes: L1-L2: No abnormalities. L2-L3: No abnormalities. L3-L4: Mild diffuse disc bulge. No foraminal or canal stenosis. L4-L5: Mild diffuse disc bulge. No foraminal or canal stenosis. L5-S1: Mild diffuse disc bulge. No foraminal or canal stenosis. IMPRESSION: 1. No acute abnormality, specifically, no acute fracture. 2. Leftward curvature of the spine centered at L3. 3. Degenerative disks from L3-L4 through L5-S1 without canal or foraminal stenosis. Signed by: Dr. Melani Gonzalez M.D. on 04/06/2020 10:35 AM Dictated By: MELANI TERRELL MD 1035 T ranscribed By: KERI on 04/06/20 1035 COPY TO: EDDI KUMAR DO CHEST SINGLE (PORTABLE) 2019-06-10 17:04:00 [place] [address] Patient Name: TOMÁS MARIANO MR #: [id number] : 1945 Age/Sex: 73/F Req #: [id number] Adm Physician: Ordered by: BALBIR SANDERS RECEIVING CLERK Report #: [id number] Location: ER Room/Bed: Procedure: [id number] DX/CHEST SINGLE (PORTABLE) Exam Date: 06/10/19 Exam [...] KERI on 06/10/191704 COPY TO: BALBIR SANDERS RECEIVING CLERK Prothrombin Time 2019-06-10 16:50:00 Test Item Prothrombin Time (test code = 5902-2) 12.1 11.9-14.5 [facility] Center[facility]th[facility] Time International Ratio 2019-06-10 16:50:00* Test Item Value Reference Range Interpretation Comments Prothromb Time International Ratio (test code = 6301-6) 0.85 Oral Anticoagulant Therapy INR Values:1. Low Intensity Therapy 1.5 - 2.02 . Moderate Intensity Therapy 2.0 - 3.03. High Intensity Therapy(1) 2.5 - 3. 54. High Intensity Therapy(2) 3.0 - 4.05. Panic Value INR > 5.0 [facility] CenterActivated Partial Thromboplast Time 2019-06-10 16:50:00* Test Item Value Reference Range Interpretation Comments Activated Partial Thromboplast Time (test code = 01332-3) 26.4 23.8-35.5 [facility] CenterMagnesium Hpsus5074-61-69 16:25:00* Test Item Value Reference Range Interpretation Comments Magnesium Level (test code = 87646-6) 2.0 1.3-2.1 [facility] CenterB-Type Natriuretic Dgurphl3108-39-10 16:14:00* Test Item Value Reference Range Interpretation Comments B-Type Natriuretic Peptide (test code = 37349-2) 49.1 0-100 [facility] CenterCreatine Kinase [id number] 16:09:00* Test Item Value Reference Range Interpretation Comments Creatine Kinase MB (test code = 19520-7) 0.90 0-5.0 [facility] CenterTroponin [id number] 16:09:00* Test Item Value Reference Range Interpretation Comments Troponin I (test code = CDV6838) 0.011 0-0.300 [facility] CenterCreatine Dusroh9675-61-17 16:02:00* Test Item Value Reference Range Interpretation Comments Creatine Kinase (test code = 2157-6) 55 29-168 [facility] CenterUrine [id number] 15:43:00* Test Item Value Reference Range Interpretation Comments Urine WBC (test code = 5821-4) NONE 0-5 [facility] CenterUrine [id number] 15:43:00* Test Item Value Reference Range Interpretation Comments Urine RBC (test code = 49764-5) NONE 0-5 [facility] CenterUrine Ymwylryb6029-65-96 15:43:00* Test Item Value Reference Range Interpretation Comments Urine Bacteria (test code = 04091-1) NONE NONE [facility] CenterUrine Epithelial Upsxz1131-55-46 15:43:00 * Test Item Value Reference Range Interpretation Comments Urine Epithelial Cells (test code = 29831-2) FEW NONE [facility] CenterUrine Hsvos7003-99-74 15:19:00* Test Item Value Reference Range Interpretation Comments Urine Color (test code = 5778-6) YELLOW YELLOW [facility] CenterUrine Kivhnme8337-54-66 15:19:00* Test Item Value Reference Range Interpretation Comments Urine Clarity (test code = 91492-1) CLEAR CLEAR [facility] CenterUrine Specific Svslmtq6340-17-10 15:19:00 * Test Item Value Reference Range Interpretation Comments Urine Specific [place] (test code = 5811-5) 1.010 1.010-1.02 5 [facility] CenterUrine [id number] 15:19:00* Test Item Value Reference Range Interpretation Comments Urine pH (test code = 57859-5) 6 5-7 [facility] CenterUrine Leukocyte Smybyhvw8047-40-23 15:19:00* Test Item Value Reference Range Interpretation Comments Urine Leukocyte Esterase (test code = 71326-6) NEGATIVE NEGATIV E [facility] CenterUrine Awehquu9471-39-46 15:19:00* Test Item Value Reference Range Interpretation Comments Urine Nitrite (test code = 60399-8) NEGATIVE NEGATIVE [facility] CenterUrine Lyrgumk5760-45-83 15:19:00* Test Item Value Reference Range Interpretation Comments Urine Protein (test code = 72047-3) NEGATIVE NEGATIVE [facility] CenterUrine Glucose (UA)2019-06-10 15:19:00* Test Item Value Reference Range Interpretation Comments Urine Glucose (UA) (test code = 73667-2) NEGATIVE NEGATIVE [facility] Gmwvcpq4120-61-22 15:19:00* Test Item Value Reference Range Interpretation Comments Urine Ketones (test code = 77978-0) NEGATIVE NEGATIVE [facility] Udzaeytmhtnz5174-13-30 15:19:00* Test Item Value Reference Range Interpretation Comments Urine Urobilinogen (test code = 06292-7) 0.2 0.2-1 [facility] Idkoxedeg3217-25-01 15:19:00* Test Item Value Reference Range Interpretation Comments Urine Bilirubin (test code = 1977-8) NEGATIVE NEGATIVE [facility] Aujcu9859-31-01 15:19:00* Test Item Value Reference Range Interpretation Comments Urine Blood (test code = 11931-2) NEGATIVE NEGATIVE [facility] Jirhi2444-76-72 15:01:00* Test Item Value Reference Range Interpretation Comments Sodium Level (test code = 2951-2) 139 136-145 [facility] CenterPotassium Inoag9832-63-64 15:01:00* Test Item Value Reference Range Interpretation Comments Potassium Level (test code = 2823-3) 4.0 3.5-5.1 [facility] CenterChloride Hizab2253-52-80 15:01:00* Test Item Value Reference Range Interpretation Comments Chloride Level (test code = 2075-0) 101 98-107 [facility] CenterCarbon Dioxide Sblog3128-80-96 15:01:00* Test Item Value Reference Range Interpretation Comments Carbon Dioxide Level (test code = 2028-9) 28 22-29 [facility] CenterAnion Onq3106-43-80 15:01:00* Test Item Value Reference Range Interpretation Comments Anion Gap (test code = 11781-3) 14.0 8-16 [facility] CenterBlood Urea Ozoqfiva1451-56-55 15:01:00* Test Item Value Reference Range Interpretation Comments Blood Urea Nitrogen (test code = 3094-0) 14 7-26 [facility] CenterCreatinine2019-10-11 15:01:00* Test Item Value Reference Range Interpretation Comments Creatinine (test code = 2160-0) 0.82 0.57-1.11 [facility] CenterBUN/Creatinine Cxpve6770-40-87 15:01:00* Test Item Value Reference Range Interpretation Comments BUN/Creatinine Ratio (test code = 3097-3) 17 6-25 [facility] CenterEstimat Glomerular Filtration Rate 2019-06-10 15:01:00* Test Item Value Reference Range Interpretation Comments Estimat Glomerular Filtration Rate (test code = 665019287) > 60 >60 Ranges were taken from the National Kidney Disease Education Program and the [facility] Foundation literature.Reference ranges:60 or greater: Outqhz84-74 ( for 3 consecutive months): Chronic kidney disease 15 or less: Kidney failureCHRISTUS [facility] – Medical CenterGlucose Crebn9385-65-73 15:01:00* Test Item Value Reference Range Interpretation Comments Glucose Level (test code = OUR5339) 123 74-118 H [facility] CenterCalcium Zmhhq4784-44-46 15:01:00* Test Item Value Reference Range Interpretation Comments Calcium Level (test code = 49134-9) 9.8 8.4-10.2 [facility] CenterTotal Zscrcesxg4178-06-31 15:01:00* Test Item Value Reference Range Interpretation Comments Total Bilirubin (test code = 1975-2) 0.4 0.2-1.2 [facility] Medical CenterAspartate Amino Transf (AST/SGOT) 2019-06-10 15:01:00* Test Item Value Reference Range Interpretation Comments Aspartate Amino Transf (AST/SGOT) (test code = Aspartate Amino Transf (AST/SGOT)) 25 5-34 [facility] CenterAlanine Aminotransferase (ALT/SGPT) 2019-06-10 15:01:00* Test Item Value Reference Range Interpretation Comments Alanine Aminotransferase (ALT/SGPT) (test code = 1742-6) 20 0-55 [facility] Medical CenterTotal Ypfyihf9628-50-28 15:01:00* Test Item Value Reference Range Interpretation Comments Total Protein (test code = 2885-2) 6.9 6.5-8.1 [facility] CenterAlbumin2019-10-11 15:01:00* Test Item Value Reference Range Interpretation Comments Albumin (test code = 1751-7) 3.9 3.5-5.0 [facility] CenterGlobulin2019-10-11 15:01:00* Test Item Value Reference Range Interpretation Comments Globulin (test code = 76170-9) 3.0 2.3-3.5 [facility] CenterAlbumin/Globulin Pdmcc6875-12-78 15:01:00 * Test Item Value Reference Range Interpretation Comments Albumin/Globulin Ratio (test code = 1759-0) 1.3 0.8-2.0 [facility] CenterAlkaline Xujokehhgsk0666-19-72 15:01:00* Test Item Value Reference Range Interpretation Comments Alkaline Phosphatase (test code = 6768-6) 59 40-150 [facility] CenterWhite Blood Awzav1279-27-13 14:36:00* Test Item Value Reference Range Interpretation Comments White Blood Count (test code = 6690-2) 2.85 4.8-10.8 L [facility] CenterRed Blood Nuftx4805-90-84 14:36:00* Test Item Value Reference Range Interpretation Comments Red Blood Count (test code = 789-8) 4.65 3.6-5.1 [facility] CenterHemoglobin2019-10-11 14:36:00* Test Item Value Reference Range Interpretation Comments Hemoglobin (test code = 02074-4) 15.1 12.0-16.0 [facility] CenterHematocrit2019-10-11 14:36:00* Test Item Value Reference Range Interpretation Comments Hematocrit (test code = 4544-3) 44.4 34.2-44.1 H [facility] CenterMean Corpuscular Ycttfh5364-64-86 14:36:00* Test Item Value Reference Range Interpretation Comments Mean Corpuscular Volume (test code = 787-2) 95.5 81-99 [facility] CenterMean Corpuscular Joqezhxslx6538-70-11 14:36:00* Test Item Value Reference Range Interpretation Comments Mean Corpuscular Hemoglobin (test code = 785-6) 32.5 28-32 H [facility] CenterMean Corpuscular Hemoglobin Concent 2019-06-10 14:36:00* Test Item Value Reference Range Interpretation Comments Mean Corpuscular Hemoglobin Concent (test code = 786-4) 34.0 31-35 [facility] CenterRed Cell Distribution Hjisz8037-50-90 14:36:00* Test Item Value Reference Range Interpretation Comments Red Cell Distribution Width (test code = 65637-9) 12.5 11.7 -14.4 [facility] CenterPlatelet Rklsj0812-24-06 14:36:00* Test Item Value Reference Range Interpretation Comments Platelet Count (test code = 777-3) 103 140-360 L [facility] CenterNeutrophils (%) (Auto)2019-06-10 14:36:00 * Test Item Value Reference Range Interpretation Comments Neutrophils (%) (Auto) (test code = 05659-4) 39.1 38.7-80.0 [facility] CenterLymphocytes (%) (Auto)2019-06-10 14:36:00 * Test Item Value Reference Range Interpretation Comments Lymphocytes (%) (Auto) (test code = 736-9) 48.8 18.0-39.1 H [facility] CenterMonocytes (%) (Auto)2019-06-10 14:36:00* Test Item Value Reference Range Interpretation Comments Monocytes (%) (Auto) (test code = 5905-5) 8.8 4.4-11.3 [facility] CenterEosinophils (%) (Auto)2019-06-10 14:36:00 * Test Item Value Reference Range Interpretation Comments Eosinophils (%) (Auto) (test code = 713-8) 2.5 0.0-6.0 [facility] CenterBasophils (%) (Auto)2019-06-10 14:36:00* Test Item Value Reference Range Interpretation Comments Basophils (%) (Auto) (test code = 706-2) 0.4 0.0-1.0 [facility] CenterIM GRANULOCYTES %2019-06-10 14:36:00* Test Item Value Reference Range Interpretation Comments IM GRANULOCYTES % (test code = IM GRANULOCYTES %) 0.4 0.0- 1.0 [facility] CenterNeutrophils # (Auto)2019-06-10 14:36:00* Test Item Value Reference Range Interpretation Comments Neutrophils # (Auto) (test code = 751-8) 1.1 2.1-6.9 L [facility] CenterLymphocytes # (Auto)2019-06-10 14:36:00* Test Item Value Reference Range Interpretation Comments Lymphocytes # (Auto) (test code = 32343-9) 1.4 1.0-3.2 [facility] CenterMonocytes # (Auto)2019-06-10 14:36:00* Test Item Value Reference Range Interpretation Comments Monocytes # (Auto) (test code = 742-7) 0.3 0.2-0.8 [facility] CenterEosinophils # (Auto)2019-06-10 14:36:00* Test Item Value Reference Range Interpretation Comments Eosinophils # (Auto) (test code = 711-2) 0.1 0.0-0.4 [facility] CenterBasophils # (Auto)2019-06-10 14:36:00* Test Item Value Reference Range Interpretation Comments Basophils # (Auto) (test code = 704-7) 0.0 0.0-0.1 [facility] CenterAbsolute Immature Granulocyte (auto 2019-06-10 14:36:00* Test Item Value Reference Range Interpretation Comments Absolute Immature Granulocyte (auto (litzy t code = Absolute Immature Granulocyte (auto) 0.01 0-0.1 [facility]CR [facility] BILATERAL JUAN MIGUEL CAD DIGITAL 2018-09-14 15:08:30 - SCR MAMM BILATERAL JUAN MIGUEL CAD DIGITALBILATERAL DIGITAL SCREENING MAMMOGRAM 3D/2D WITH CAD: 09/11/2018CLINICAL: Asymptomatic. Digital breast tomosynthesis was performed in addition to routine CC and MLO views. Current mammographic images were evaluated by either a [employer] M-Vu or a [employer] Image[employer] CAD (computer aided detection system). Comparison is made to exams dated 07/20/2017 mammogram, 05/29/2016 mammogram, and 04/24/2015 mammogram - [facility]. The tissue of both breasts is predominantly fatty. No suspicious mass, architectural distortion, malignant type calcification, or lymph node abnormality detected. Breast architecture is stable compared to prior exams.IMPRESSION: NEGATIVEThere is no mammographic evidence of malignancy. Resume annual screening mammography in one year. Kelsey munoz/penrad:09/14/2018 15:08:30 Quality Lab Technician: Heather JUNG, [facility] sent: BIRADS 1-2 Normal Mammogram BI-RADS: 1 Negative CHEST 2 OEMYY8689-20-42 14:33:00 [place] [address] Patient Name: TOMÁS MARIANO MR #: [id number] : 1945 Age/Sex: 72/F Req #: [id number] Adm Physician: Ordered by: BALBIR SANDERS RECEIVING CLERK Report #: [id number] Location: ER Room/Bed: Procedure: [id number] DX/CHEST [...] ADAMS MD 32 COPY TO: KEYSHAWN SANDERS RECEIVING CLERK MRI BRAIN CH1901-03-87 17:39:00 [place] [address] Patient Name: TOMÁS MARIANO MR #: [id number] : 1945 Age/Sex: 72/F Req #: [id number] Adm Physician: Ordered by: JOHNATHAN BAUTISTA M.D. Report #: [id number] Location: MRI Room/Bed: Procedure: [id number] MRI/MRI BRAIN WO Ex am Date: Exam [...] collection. Parenchyma: No mass, hemorrhage or ac [place] ischemia. A few scattered and mildly confluent [...] TO: JOHNATHAN BAUTISTA MD Valproic Acid (Depakene) Bfqyc7324-06-38 18:09:00* Test Item Value Reference Range Interpretation Comments Valproic Acid (Depakene) Level (test code = 4086-5) 69 50 -100 [facility] CenterErythrocyte Sedimentation [id number] 16:43:00* Test Item Value Reference Range Interpretation Comments Erythrocyte Sedimentation Rate (test code = 4537-7) 2 0- 20 [facility] CenterThyroid Stimulating Hormone (TSH) 2018-04-02 16:42:00* Test Item Value Reference Range Interpretation Comments Thyroid Stimulating Hormone (TSH) (test code = 45216-9) 1.856 0.350-4.940 [facility] CenterCT BRAIN [id number] 16:39:00 [facility] [address] [place] [address] Patient Name: TOMÁS MARIANO MR #: [id number] : 1945 Age/Sex: 72/F Req #: [id number] Adm Physician: Ordered by: SYED GILBERT MD Report #: [id number] Location: Room /Bed: Procedure: [id number] CT/CT BRAIN WO Exam Date: 04/02/18 Exam [...] 1 944 Transcribed By: KERI on 04/02/18 9106 COPY TO: SYED GILBERT Sodium [id number] 16:24:00* Test Item Value Reference Range Interpretation Comments Sodium Level (test code = 2951-2) 138 136-145 [facility] CenterPotassium [id number] 16:24:00* Test Item Value Reference Range Interpretation Comments Potassium Level (test code = 2823-3) 3.9 3.5-5.1 [facility] CenterChloride [id number] 16:24:00* Test Item Value Reference Range Interpretation Comments Chloride Level (test code = 2075-0) 100 98-107 [facility] CenterCarbon Dioxide [id number] 16:24:00* Test Item Value Reference Range Interpretation Comments Carbon Dioxide Level (test code = 2028-9) 29 22-29 [facility] CenterAnion [id number] 16:24:00* Test Item Value Reference Range Interpretation Comments Anion Gap (test code = 52923-1) 12.9 8-16 [facility] CenterBlood Urea Iboivcmb5927-49-30 16:24:00* Test Item Value Reference Range Interpretation Comments Blood Urea Nitrogen (test code = 3094-0) 21 7-26 [facility] CenterCreatinine2018-08-03 16:24:00* Test Item Value Reference Range Interpretation Comments Creatinine (test code = 2160-0) 0.85 0.57-1.11 [facility] CenterBUN/Creatinine Fonkl5980-26-84 16:24:00* Test Item Value Reference Range Interpretation Comments BUN/Creatinine Ratio (test code = 3097-3) 25 6-25 [facility] CenterEstimat Glomerular Filtration Rate 2018-04-02 16:24:00* Test Item Value Reference Range Interpretation Comments Estimat Glomerular Filtration Rate (test code = 08960-2) 60- >60 Ranges were taken from the National Kidney Disease Education Program and the [facility] literature.Reference ranges:60 or greater: Riudnk70-73 ( for 3 consecutive months): Chronic kidney disease 15 or less: Kidney failureCHRISTUS [facility] – Medical CenterGlucose Qvhsm9536-73-93 16:24:00* Test Item Value Reference Range Interpretation Comments Glucose Level (test code = VNH9755) 87 74-118 [facility] CenterCalcium [id number] 16:24:00* Test Item Value Reference Range Interpretation Comments Calcium Level (test code = 14596-5) 9.5 8.4-10.2 [facility] CenterTotal Fpakvgkxu6365-44-78 16:24:00* Test Item Value Reference Range Interpretation Comments Total Bilirubin (test code = 1975-2) 0.3 0.2-1.2 [facility] Medical CenterAspartate Amino Transf (AST/SGOT) 2018-04-02 16:24:00* Test Item Value Reference Range Interpretation Comments Aspartate Amino Transf (AST/SGOT) (test code = Aspartate Amino Transf (AST/SGOT)) 22 5-34 [facility] CenterAlanine Aminotransferase (ALT/SGPT) 2018-04-02 16:24:00* Test Item Value Reference Range Interpretation Comments Alanine Aminotransferase (ALT/SGPT) (test code = 1742-6) 24 0-55 [facility] CenterTotal Zklzhwt7427-47-76 16:24:00* Test Item Value Reference Range Interpretation Comments Total Protein (test code = 2885-2) 7.1 6.5-8.1 [facility] CenterAlbumin2018-08-03 16:24:00* Test Item Value Reference Range Interpretation Comments Albumin (test code = 1751-7) 4.0 3.5-5.0 [facility] CenterGlobulin2018-08-03 16:24:00* Test Item Value Reference Range Interpretation Comments Globulin (test code = 63019-4) 3.1 2.3-3.5 [facility] CenterAlbumin/Globulin [id number] 16:24:00 * Test Item Value Reference Range Interpretation Comments Albumin/Globulin Ratio (test code = 1759-0) 1.3 0.8-2.0 [facility] CenterAlkaline Rkoswjrybqt0855-40-47 16:24:00* Test Item Value Reference Range Interpretation Comments Alkaline Phosphatase (test code = 6768-6) 69 40-150 [facility] CenterUrine TFO1204-00-08 16:07:00* Test Item Value Reference Range Interpretation Comments Urine WBC (test code = 5821-4) NONE 0-5 [facility] CenterUrine [id number] 16:07:00* Test Item Value Reference Range Interpretation Comments Urine RBC (test code = 45354-0) NONE 0-5 [facility] CenterUrine Rjezogmv8428-89-13 16:07:00* Test Item Value Reference Range Interpretation Comments Urine Bacteria (test code = 25399-9) NONE NONE [facility] Medical CenterUrine Epithelial Fykmt8428-53-68 16:07:00 * Test Item Value Reference Range Interpretation Comments Urine Epithelial Cells (test code = 28469-3) RARE NONE [facility] CenterUrine Fjuuo4688-76-70 15:59:00* Test Item Value Reference Range Interpretation Comments Urine Color (test code = 5778-6) YELLOW YELLOW [facility] CenterUrine Yauyqqf9717-20-40 15:59:00* Test Item Value Reference Range Interpretation Comments Urine Clarity (test code = 36015-4) CLEAR CLEAR [facility] CenterUrine Specific [id number] 15:59:00 * Test Item Value Reference Range Interpretation Comments Urine Specific [place] (test code = 5811-5) 1.010 1.010-1.02 5 [facility] CenterUrine [id number] 15:59:00* Test Item Value Reference Range Interpretation Comments Urine pH (test code = 02226-8) 7 5-7 [facility] Medical CenterUrine Leukocyte Qldikhwm2532-74-74 15:59:00* Test Item Value Reference Range Interpretation Comments Urine Leukocyte Esterase (test code = 5799-2) NEGATIVE NEGATIVE [facility] CenterUrine Olllsvu6438-96-18 15:59:00* Test Item Value Reference Range Interpretation Comments Urine Nitrite (test code = 94304-3) NEGATIVE NEGATIVE [facility] CenterUrine Wnomdrv2506-04-83 15:59:00* Test Item Value Reference Range Interpretation Comments Urine Protein (test code = 5804-0) NEGATIVE NEGATIVE [facility] CenterUrine Glucose (UA)2018-04-02 15:59:00* Test Item Value Reference Range Interpretation Comments Urine Glucose (UA) (test code = 2349-9) NEGATIVE NEGATIVE [facility] CenterUrine Ndoxdnx6920-70-68 15:59:00* Test Item Value Reference Range Interpretation Comments Urine Ketones (test code = 24046-4) NEGATIVE NEGATIVE [facility] Medical CenterUrine Cnalwdtdkjhp3194-05-56 15:59:00* Test Item Value Reference Range Interpretation Comments Urine Urobilinogen (test code = 96034-0) 0.2 0.2-1 [facility] CenterUrine Mhdbfrbnh3396-56-59 15:59:00* Test Item Value Reference Range Interpretation Comments Urine Bilirubin (test code = 1978-6) NEGATIVE NEGATIVE [facility] CenterUrine Csayd0872-75-64 15:59:00* Test Item Value Reference Range Interpretation Comments Urine Blood (test code = 30143-4) NEGATIVE NEGATIVE [facility] CenterWhite Blood [id number] 15:50:00* Test Item Value Reference Range Interpretation Comments White Blood Count (test code = 6690-2) 4.94 4.8-10.8 [facility] CenterRed Blood Ozgyp4121-25-80 15:50:00* Test Item Value Reference Range Interpretation Comments Red Blood Count (test code = 789-8) 5.14 3.6-5.1 H [facility] CenterHemoglobin2018-08-03 15:50:00* Test Item Value Reference Range Interpretation Comments Hemoglobin (test code = 91423-4) 16.6 12.0-16.0 H [facility] CenterHematocrit2018-08-03 15:50:00* Test Item Value Reference Range Interpretation Comments Hematocrit (test code = 4544-3) 49.1 34.2-44.1 H [facility] CenterMean Corpuscular Dgdyzi5406-19-86 15:50:00* Test Item Value Reference Range Interpretation Comments Mean Corpuscular Volume (test code = 787-2) 95.5 81-99 [facility] CenterMean Corpuscular Sycxuaqjmn2634-25-55 15:50:00* Test Item Value Reference Range Interpretation Comments Mean Corpuscular Hemoglobin (test code = 785-6) 32.3 28-32 H [facility] CenterMean Corpuscular Hemoglobin Concent 2018-04-02 15:50:00* Test Item Value Reference Range Interpretation Comments Mean Corpuscular Hemoglobin Concent (test code = 786-4) 33.8 31-35 [facility] CenterRed Cell Distribution Celxm7433-39-19 15:50:00* Test Item Value Reference Range Interpretation Comments Red Cell Distribution Width (test code = 03030-5) 12.3 11.7 -14.4 [facility] CenterPlatelet Vidnd1020-63-44 15:50:00* Test Item Value Reference Range Interpretation Comments Platelet Count (test code = 777-3) 167 140-360 [facility] CenterNeutrophils (%) (Auto)2018-04-02 15:50:00 * Test Item Value Reference Range Interpretation Comments Neutrophils (%) (Auto) (test code = 72524-8) 41.5 38.7-80.0 [facility] CenterLymphocytes (%) (Auto)2018-04-02 15:50:00 * Test Item Value Reference Range Interpretation Comments Lymphocytes (%) (Auto) (test code = 736-9) 47.2 18.0-39.1 H [facility] CenterMonocytes (%) (Auto)2018-04-02 15:50:00* Test Item Value Reference Range Interpretation Comments Monocytes (%) (Auto) (test code = 5905-5) 8.5 4.4-11.3 [facility] CenterEosinophils (%) (Auto)2018-04-02 15:50:00 * Test Item Value Reference Range Interpretation Comments Eosinophils (%) (Auto) (test code = 713-8) 1.6 0.0-6.0 [facility] CenterBasophils (%) (Auto)2018-04-02 15:50:00* Test Item Value Reference Range Interpretation Comments Basophils (%) (Auto) (test code = 706-2) 0.4 0.0-1.0 [facility] CenterIM GRANULOCYTES %2018-04-02 15:50:00* Test Item Value Reference Range Interpretation Comments IM GRANULOCYTES % (test code = IM GRANULOCYTES %) 0.8 0.0- 1.0 [facility] CenterNeutrophils # (Auto)2018-04-02 15:50:00* Test Item Value Reference Range Interpretation Comments Neutrophils # (Auto) (test code = 751-8) 2.1 2.1-6.9 [facility] CenterLymphocytes # (Auto)2018-04-02 15:50:00* Test Item Value Reference Range Interpretation Comments Lymphocytes # (Auto) (test code = 53201-9) 2.3 1.0-3.2 [facility] CenterMonocytes # (Auto)2018-04-02 15:50:00* Test Item Value Reference Range Interpretation Comments Monocytes # (Auto) (test code = 742-7) 0.4 0.2-0.8 [facility] CenterEosinophils # (Auto)2018-04-02 15:50:00* Test Item Value Reference Range Interpretation Comments Eosinophils # (Auto) (test code = 711-2) 0.1 0.0-0.4 [facility] CenterBasophils # (Auto)2018-04-02 15:50:00* Test Item Value Reference Range Interpretation Comments Basophils # (Auto) (test code = 704-7) 0.0 0.0-0.1 [facility] CenterAbsolute Immature Granulocyte (auto 2018-04-02 15:50:00* Test Item Value Reference Range Interpretation Comments Absolute Immature Granulocyte (auto (litzy t code = Absolute Immature Granulocyte (auto) 0.04 0-0.1 [facility] CenterInfluenza Virus Types A,B Antigen 2017-08-23 11:17:00* Test Item Value Reference Range Interpretation Comments Influenza Virus Types A,B Antigen (test code = 68882-1) NEGATIVE NEGATIVE [facility] CenterCHEST 2 VIEWS [facility] [address] [address] Patient Name: TOMÁS MARIANO MR #: [id number] : 1945 Age/Sex: 72/F Req #: [id number] Adm Physician: Ordered by: SYED GILBERT MD Report #: [id number] Location: ER Room/Bed: Procedure: [id number] DX/CHEST 2 VIEWS Exam Will e: Exam [...]
[2020-04-06] MEDS ORDERED: ACETAMINOPHEN 325 MG TAB PO PRN (13:30)
[2020-04-06] MEDS ORDERED: TEMAZEPAM 7.5 MG CAP PO PRN (13:30)
--- NOTE | 2020-04-06 13:38 | NUR ---
PT RECEIVED FROM ER. PT IS AAOX3. EDUCATED PT ABOUT FALL PRECAUTIONS. PT VERBALIZED UNDERSTANDING. BED IS LOW AND LOCKED. SIDE RAILS X2. BED ALARM IS ON. CALL LIGHT WITH IN EASY REACH. ALL SAFETY MEASURES IN PLACE. PT DENIES NEEDS AT THIS TIME.
--- NOTE | 2020-04-06 13:44 | NUR ---
PAGED DR. GONGORA REGARDING NEW CONSULT. REPORTED PT C/O BACK PAIN TO THE
--- NOTE | 2020-04-06 14:00 | NUR ---
PAGED DR. Franki BENJAMIN REGARDING NEW CONSULT
[2020-04-06] MEDS: HYDRALAZINE HCL 20 MG/ML VIAL IV PRN (14:17)
--- NOTE | 2020-04-06 14:24 | NUR ---
PT HOME MEDS REVIEWED AND RECONFIRMED WITH PT.
[2020-04-06] MEDS: ONDANSETRON HCL INJ 2MG/ML 2ML 2 MG/ML VIAL IV PRN ×3 (15:18→23:33)
[2020-04-06] MEDS: HYDROMORPHONE 1MG/1ML INJ IV PRN ×3 (15:18→23:33)
--- NOTE | 2020-04-06 15:20 | NUR ---
DR. GONGORA AT BEDSIDE.
[2020-04-06] MEDS ORDERED: CAFF PO PRN (15:30)
[2020-04-06] MEDS ORDERED: ISOMETHEPTENE PO PRN (15:30)
[2020-04-06] MEDS ORDERED: ACETAMINOPH PO PRN (15:30)
[2020-04-06] MEDS: FAMOTIDINE 20 MG/2 ML VIAL IV SCH (16:15)
--- NOTE | 2020-04-06 18:27 | NUR ---
PRECIOUS HAAS MANAGER SCIENCE AND REPORTED PT HOME MEDS PER THE ORDER.
--- NOTE | 2020-04-06 19:00 | NUR ---
BEDSIDE SHIFT REPORT GIVEN TO THE SYSTEM SUPPORT ANALYST RN. PT DENIED FURTHER NEEDS.
[2020-04-06] MEDS ORDERED: TEMAZEPAM 15 MG CAP PO PRN (21:00)
[2020-04-06] MEDS ORDERED: DEPAKOTE DELAYED-RELEASE TAB 500 MG PO SCH (21:00)
[2020-04-06] MEDS ORDERED: DEPAKOTE DELAYED-RELEASE TAB 500 MG PO ONE (23:30)
--- NOTE | 2020-04-06 23:31 | NUR ---
PATIENT REQUESTING HOME MED DEPAKOTE TO RESUMED, ANGELA BOBO VIA TELEPHONE, ORDERED TO RESTART DEPAKOTE PO 500MG QHS, ONE TIME DOSE NOW, THEN GIVE DEPAKOTE PO 100MG EVERY AM PER PATIENT HOME MED ORDER
[2020-04-07] VITALS (8 sets, daily range): BP systolic 132–162; BP diastolic 55–82
--- NOTE | 2020-04-07 03:42 | NUR ---
PATIENT C/O ITCHING, INDUSTRIAL SAFETY AND HEALTH SPECIALIST FAITH CONTACTED MADE AWARE, ON TIME DOSE OF BENADRYL 12.5MG IV ONE TIME ORDERED, HTN NOTED PRN MED GIVEN
[2020-04-07] MEDS ORDERED: DIPHENHYDRAMINE HCL INJ 50 MG/ML VIAL IV PRN (03:45)
[2020-04-07] MEDS: HYDRALAZINE HCL 20 MG/ML VIAL IV PRN (03:52)
[2020-04-07] MEDS: HYDROMORPHONE 1MG/1ML INJ IV PRN (05:34)
[2020-04-07] MEDS: ONDANSETRON HCL INJ 2MG/ML 2ML 2 MG/ML VIAL IV PRN (05:34)
[2020-04-07 06:00] LABS: BASOPHILS % 0.1 % (0.0-1.0); HEMATOCRIT 44.8 % (34.2-44.1); HEMOGLOBIN 15.4 g/dL (12.0-16.0); LYMPHOCYTES # (AUTO) 1.3 (1.0-3.2); LYMPHOCYTES % 15.6 % (18.0-39.1); MEAN CORPUSCULAR HEMOGLOBIN 34.2 pg (28-32); MEAN CORPUSCULAR HGB CONC 34.4 g/dL (31-35); MEAN CORPUSCULAR VOLUME 99.6 fL (81-99); MONOCYTES # (AUTO) 0.7 (0.2-0.8); MONOCYTES % 7.9 % (4.4-11.3); NEUTROPHILS # (AUTO) 6.2 (2.1-6.9); NEUTROPHILS % 75.9 % (38.7-80.0); PLATELET COUNT 123 x10e3/uL (140-360); RED CELL DISTRIBUTION WIDTH 14.3 % (11.7-14.4)
[2020-04-07 06:22] LABS: ALANINE AMINOTRANSFERASE 30 IU/L (0-55); ALBUMIN 3.9 g/dL (3.5-5.0); ALBUMIN/GLOBULIN RATIO 1.3 (0.8-2.0); ALKALINE PHOSPHATASE 62 IU/L (40-150); ANION GAP 15.4 mmol/L (8-16); BLOOD UREA NITROGEN 27 mg/dL (7-26); BUN/CREATININE RATIO 34 (6-25); CALCIUM 9.1 mg/dL (8.4-10.2); CARBON DIOXIDE 28 mmol/L (22-29); CHLORIDE 101 mmol/L (98-107); EST GLOMERULAR FILTRATION RATE > 60 ML/MIN (60-); GLUCOSE 110 mg/dL (74-118); POTASSIUM 4.4 mmol/L (3.5-5.1); SODIUM 140 mmol/L (136-145)
[2020-04-07 06:58] LABS: CHOL/HDL RATIO 3.5 (3.0-3.6); PHOSPHORUS 3.8 MG/DL (2.3-4.7)
[2020-04-07] MEDS ORDERED: PANTOPRAZOLE 40 MG 10ML VIAL IV SCH (07:00)
--- NOTE | 2020-04-07 07:00 | NUR ---
RECEIVED PATIENT RESTING IN BED NO S/S OF DISTRESS. BED LOW, WHEELS LOCKED, SIDE RAILS X2. CALL LIGHT IN REACH WILL CONTINUE TO MONITOR PATIENT.
[2020-04-07 07:12] LABS: THYROID STIMULATING HORMONE 0.675 uIU/mL (0.350-4.940)
[2020-04-07] MEDS: DOCUSATE SODIUM 100 MG CAP PO SCH ×2 (08:48→16:23)
[2020-04-07] MEDS: FAMOTIDINE 20 MG/2 ML VIAL IV SCH ×2 (08:48→16:23)
[2020-04-07] MEDS ORDERED: DEPAKOTE DELAYED-RELEASE TAB 500 MG PO SCH ×3 (09:00→21:00)
[2020-04-07] MEDS ORDERED: HYDROXYZINE HCL 10 MG TAB PO ONE (09:30)
[2020-04-07] MEDS ORDERED: DIPHENHYDRAMINE HCL 25 MG CAP PO PRN ×2 (09:30→17:15)
[2020-04-07] MEDS ORDERED: Diphenhydramine Hcl PO (15:19)
[2020-04-07] MEDS ORDERED: Lidocaine Patch TP (15:24)
[2020-04-07] MEDS ORDERED: LIDOCAINE 4% PATCH TP PRN (15:30)
[2020-04-07] MEDS ORDERED: DIPHENHYDRAMINE HCL 25 MG PO PRN (15:45)
[2020-04-07] MEDS ORDERED: PROMETHAZINE HCL 25 MG TAB PO PRN (15:45)
[2020-04-07] MEDS ORDERED: NON-FORMULARY MEDICATION ([Lidocaine Patch] 1 EA) TP PRN (15:45)
--- NOTE | 2020-04-07 16:30 | NUR ---
REMOVED PATIENTS IV. CATHETER TIP INTACT AND PRESSURE DRESSING APPLIED.
--- NOTE | 2020-04-07 16:53 | NUR ---
PATIENT DISCHARGED FROM FACILITY. PATIENT GATHERED ALL PERSONAL BELONGINGS, DISCHARGE INSTRUCTIONS, AND FOLLOW UP INFORMATION. PATIENT LEFT UNIT IN WHEELCHAIR AND WENT HOME VIA PRIVATE AUTO. NO S/S OF DISTRESS WHEN LEAVING FACILITY.
--- NOTE | 2020-04-07 20:10 | Discharge Summary ---
PRIMARY CARE PHYSICIAN: Ronnie Flores MD. OUTPATIENT NEUROLOGIST: Dr. Olson. CONSULTING PHYSICIANS: Include Dr. Chamberlain with Pain Management and Dr. Graham with Gastroenterology. HISTORY OF PRESENT ILLNESS: The patient is a 74-year-old female with atraumatic back pain without bilateral lower extremity weakness, who presented to the emergency department. The patient has a past history of nailing something to a chair in a lying position about 4 years ago and since then has had flare-ups of low back pain. She has had three episodes of severe back pain in the last four years with history of Lidoderm patch. Use emergency room trips, but this is her 1st hospitalization, due to it the patient had some recurrent nausea, vomiting twice on 04/06/2020, but otherwise was stable. Please see dictated history and physical for past medical, surgical, family, social history, as well as allergies and initial blood work. The patient had a CT of the lumbar spine, which showed no acute abnormality, specifically no acute fracture, showed leftward curvature of the spine, centered at L3. Degenerative disks from L3-L4 through L5-S1 without canal or foraminal stenosis. The patient was given Dilaudid for pain, likely had an adverse drug reaction of itching, which was relieved with Benadryl. Overall, she has been stable. She ambulated with physical therapist today, contact guard assist without a walker or assistive device. She did well. She feels ready to be released. Temperature today 98.7, heart rate 85, respirations 18, blood pressure 138/55, pulse oximetry 100% on room air. Physical exam is unchanged from yesterday. LABORATORY DATA: WBCs 8.18, hemoglobin 15.4, hematocrit 44.8, and platelets 123. Sodium 140, potassium 4.4, chloride 101, CO2 of 28, anion gap 15.4, BUN 27, creatinine 0.8, estimated GFR greater than 60, glucose 110. Hemoglobin A1c 5.3%. Calcium 9.1, phosphorus 3.8, magnesium 2.0, total bilirubin 0.5, AST 27, ALT 30, alkaline phosphatase 62, total protein 7, albumin 3.9. Triglycerides 83, cholesterol 227, LDL 145, HDL 65, lipase 28. TSH 0.675. ADMITTING DIAGNOSES: 1. Low back pain, acute on chronic (episodic) with ambulatory dysfunction. 2. Recurrent nausea and vomiting. 3. History of transient ischemic attack. 4. History of basilar artery migraines. DISCHARGE DIAGNOSES: 1. Low back pain, acute on chronic (episodic) with ambulatory dysfunction. 2. Recurrent nausea and vomiting. 3. History of transient ischemic attack. 4. History of basilar artery migraines. 5. Hyperlipidemia. The patient will be discharged on a GI soft diet, advance as tolerated. Today, she states her low back pain is a 2/10 on a 0 to 10 pain scale. She has more soreness than pain. Activity level as tolerated. Follow up with her PCP, Dr. Flores in 1 to 2 weeks. Follow up with Dr. Chamberlain and Dr. Graham as needed. We will discharge her with prescriptions for Lidoderm patch, quantity 14, as well as Benadryl as needed for itching. Dictated by Rock Coleman NP Cecil Rhoades MD HWP/HERMANN /[id number]
--- NOTE | 2020-04-07 21:05 | History and Physical ---
PRIMARY CARE PHYSICIAN: Ronnie Flores M.D. The patient's outpatient neurologist is Dr. Olson. The patient's outpatient urologist is Dr. Fernandez. CHIEF COMPLAINT: Low back pain. HISTORY OF PRESENT ILLNESS: The patient is a 74-year-old female with atraumatic back pain without bilateral lower extremity weakness that was admitted via the Emergency Department. The patient states this is her usual flare up and that she usually gets steroid injections in the past to help her with the pain. Apparently, she was nailing something to a chair where she was in a lying position about 4 years ago and that is when she first had low back pain signs and symptoms. Since then, she has had about three episodes of severe back pain in the last four years with history of Lidoderm patch use, but this is her first hospitalization. She has had several emergency room trips because of it. Apparently, she had some recurrent nausea and vomiting a couple of times today, which she attributes to the pain. Pain level of 10, thus admitted to the hospital per the emergency room physician. PAST MEDICAL HISTORY: CVA/TIA, vertigo basilar artery migraines, kidney stones, multiple medication allergies. 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 PAST SURGICAL HISTORY: Left breast lumpectomy, cholecystectomy, appendectomy, hemorrhoid surgery, and ureteral stent x2. FAMILY HISTORY: Mother had diabetes, pancreatic cancer, and TIAs. Her sister had a heart valve replaced, which caused her . Her father had an MO. SOCIAL HISTORY: The patient states she lives with her , has [employer]. 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 She used to smoke a minimal amount less than a quarter of a pack per day when she was younger. She drank alcohol on occasion earlier in life, but that was minimal as well. Denies any use of illicit drugs. She does not use assistive device such as a cane or walker when ambulating at home. ALLERGIES: SHE HAS MULTIPLE ALLERGIES INCLUDING, BUT NOT LIMITED TO THE FOLLOWIN. TOPIRAMATE, MILD REACTION CAUSE STUTTERING HER TO BE SILLY. 2. NITROFURANTOIN MACROCRYSTALS, UNKNOWN REACTION. 3. AMITRIPTYLINE, UNKNOWN REACTION. 4. CIPROFLOXACIN, UNKNOWN REACTION. 5. CODEINE, UNKNOWN REACTION. 6. DULOXETINE, UNKNOWN REACTION. 7. GATIFLOXACIN, UNKNOWN REACTION. 8. IODINE, UNKNOWN REACTION. 9. PENTAZOCINE, UNKNOWN REACTION. 10. SERTRALINE, UNKNOWN REACTION. 11. SULFAMETHOXAZOLE, UNKNOWN REACTION. 12. TRAMADOL, UNKNOWN REACTION. 13. TRIMETHOPRIM, UNKNOWN REACTION. 14. BUTORPHANOL TARTRATE, UNKNOWN REACTION. 15. MEPERIDINE HYDROCHLORIDE, UNKNOWN REACTION. 16. EGGS. HOME MEDICATIONS: 1. Prodrin caplet. 2. Aspirin 81 mg daily. 3. Depakote 250 mg three tabs daily. 4. Promethazine 12.5 mg every 6 hours as needed for nausea. 5. Senna docusate 8 mg. 6. Calcium 250 mg daily. 7. Calciferol 400 unit capsule daily. 8. Propranolol 40 mg daily. 9. Diphenhydramine 25 mg every 6 hours as needed for itching. 10. Lidoderm patch one every 24 hours as needed for low back pain. 11. Metamucil pills. REVIEW OF SYSTEMS: CONSTITUTIONAL: The patient denies any weight loss or fever. EYES: She has known cataracts. RESPIRATORY: Shortness of breath earlier due to the pain. INTEGUMENTARY: Itching, which was likely an adverse drug reaction from her Dilaudid. GASTROINTESTINAL: Tolerating clear liquid diet. Last bowel movement was this morning. MUSCULOSKELETAL: Low back pain as per history of present illness. NEUROLOGIC: Dizziness with over exertion in general at home. Fourteen-point review of systems was done, otherwise negative. OBJECTIVE: VITAL SIGNS: Temperature 97.8, blood pressure 156/70, respirations 18, pulse 77, oxygen saturation 95%, and pain level 10/10. GENERAL: Mild distress due to the back pain. LUNGS: Clear to auscultation. RESPIRATORY: Pattern even, unlabored, not on oxygen. HEENT: EOMI. NECK: Supple. No JVD. CARDIOVASCULAR: Regular rate and rhythm. Holosystolic murmur appreciated. ABDOMEN: Bowel sounds positive. Soft, nontender. EXTREMITIES: No pitting edema. No clubbing, cyanosis, or marked swelling. No sign or symptom of DVT. NEUROLOGIC: GCS 15. Nonfocal. LABORATORY DATA: WBCs are 5.88, hemoglobin 15.9, hematocrit 48.6, and platelets 142. Sodium 141, potassium 4.5, chloride 106, CO2 of 26, anion gap 13.5, BUN 20, creatinine 0.84, estimated GFR greater than 60, glucose 111, calcium 9.1, and total bilirubin 0.5. LFTs were within normal limits. CK-MB 0.7. Troponin I less than 0.001. Total protein 6.5, albumin 3.7, and lipase 28. Coronavirus PCR is pending. LABORATORY DATA: CT of the lumbar spine showed no acute abnormality, specifically no acute fracture. Leftward curvature of the spine, centered at L3, degenerative DS from L3-L4 through L5-S1 without canal or foraminal stenosis. ASSESSMENT AND PLAN: 1. Low back pain, epyjp-dr-jwbnudd (episodic) with ambulatory dysfunction. Physical therapy evaluation and treatment. CT of the lumbar spine did not show any acute fracture. We will ask Dr. Chamberlain with Pain Management to see the patient. 2. Recurrent nausea and vomiting. Continue antiemetics. The patient has multiple allergies. We will need to be mindful of this. Dr. Graham was consulted with Gastroenterology to follow. 3. History of TIA. GCS 15, nonfocal. 4. History of basilar artery migraines. Monitor. 5. Prophylaxis, Pepcid, SCDs and ambulation with physical therapy. TIME SPENT: 60 minutes BILLING CODE: 75871 Dictated by Rock Coleman NP Cecil Rhoades MD HWP/MODL /[id number]
[2020-04-08] MEDS ORDERED: PROPRANOLOL HCL 40 MG PO SCH (09:00)
[2020-04-08] MEDS ORDERED: CALCIUM 250 MG PO SCH (09:00)
[2020-04-08] MEDS ORDERED: SENNA-S TABLET PO SCH (09:00)
[2020-04-08] MEDS ORDERED: PROPRANOLOL HCL 40 MG TAB PO SCH (09:00)
[2020-04-08] MEDS ORDERED: CHOLECALCIFEROL 400 UNIT TAB PO SCH (09:00)
[2020-04-08] MEDS ORDERED: ASPIRIN 81 MG CHEW TAB PO SCH (09:00)
[2020-04-08] MEDS ORDERED: CALCIUM CARBONATE 500 MG CHEWABLE TABS PO SCH (09:00)
[2020-04-08] MEDS ORDERED: CHOLECALCIFEROL PO SCH (09:00)
== END 2020-04-07 16:53 | disposition home or self-care (01) ==
LOC: ER 08:55 → ERHOLD 11:46 → MED/SURG3 13:32
PROVIDERS: ADMIT Internal Medicine; ATTEND Internal Medicine
DX: M54.5 Low back pain (principal); M51.37 Other intervertebral disc degeneration, lumbosacral region; R11.2 Nausea with vomiting, unspecified; T40.2X5A Adverse effect of other opioids, initial encounter; Y92.230 Patient room in hospital as the place of occurrence of the external cause; E78.5 Hyperlipidemia, unspecified; Z86.73 Personal history of transient ischemic attack (TIA), and cerebral infarction without residual deficits; Z87.442 Personal history of urinary calculi; Z96.0 Presence of urogenital implants; Z90.49 Acquired absence of other specified parts of digestive tract; Z88.5 Allergy status to narcotic agent; Z88.2 Allergy status to sulfonamides; Z88.8 Allergy status to other drugs, medicaments and biological substances; Z88.1 Allergy status to other antibiotic agents; Z91.012 Allergy to eggs; Z83.3 Family history of diabetes mellitus; Z80.8 Family history of malignant neoplasm of other organs or systems; Z82.3 Family history of stroke; Z82.49 Family history of ischemic heart disease and other diseases of the circulatory system; Z09 Encounter for follow-up examination after completed treatment for conditions other than malignant neoplasm; Z87.898 Personal history of other specified conditions; Z11.59 Encounter for screening for other viral diseases
CPT/HCPCS: 36415 ×2; 72131; 80053 ×2; 80061; 82550; 82553; 83036; 83690; 83735; 84100; 84443; 84484; 85025 ×2; 97116; 97161; 97530; 99284; C9113; G0378 ×2; J0360 ×2; J1170 ×2; J1200; J2270; J2405 ×2; J2930; J3010; J3410; U0002

== ENCOUNTER 2020-09-17 10:47 | Emergency (ER) | payer MEDICARE ==
[~2020-09-17] VITALS: Ht 157.5 cm; Wt 52.6 kg
[~2020-09-17 10:47] MED LIST changes: +Diphenhydramine Hcl PO; +Lidocaine Patch TP
[2020-09-17] MEDS ORDERED: SODIUM CHLORIDE 0.9% 1000ML 1,000 ML IV STA (11:16)
[2020-09-17] MEDS ORDERED: KETOROLAC TROMETHAMINE 30 MG/ML VIAL IV STA (11:16)
[2020-09-17] MEDS ORDERED: ONDANSETRON HCL INJ 2MG/ML 2ML 2 MG/ML VIAL IV STA (11:16)
[2020-09-17 11:27] LABS: BASOPHILS % 0.3 % (0.0-1.0); EOSINOPHILS # (AUTO) 0.1 (0.0-0.4); EOSINOPHILS % 1.9 % (0.0-6.0); HEMATOCRIT 47.6 % (34.2-44.1); HEMOGLOBIN 15.8 g/dL (12.0-16.0); LYMPHOCYTES # (AUTO) 2.2 (1.0-3.2); LYMPHOCYTES % 32.5 % (18.0-39.1); MEAN CORPUSCULAR HEMOGLOBIN 31.7 pg (28-32); MEAN CORPUSCULAR HGB CONC 33.2 g/dL (31-35); MEAN CORPUSCULAR VOLUME 95.4 fL (81-99); MONOCYTES # (AUTO) 0.4 (0.2-0.8); MONOCYTES % 6.4 % (4.4-11.3); NEUTROPHILS # (AUTO) 3.9 (2.1-6.9); NEUTROPHILS % 58.6 % (38.7-80.0); PLATELET COUNT 150 x10e3/uL (140-360); RED BLOOD COUNT 4.99 x10e6/uL (3.6-5.1); RED CELL DISTRIBUTION WIDTH 12.3 % (11.7-14.4)
[2020-09-17] MEDS ORDERED: DIAZEPAM 2 MG TAB PO ONE (11:30)
[2020-09-17 11:54] LABS: ALANINE AMINOTRANSFERASE 30 IU/L (0-55); ALBUMIN 3.9 g/dL (3.5-5.0); ALBUMIN/GLOBULIN RATIO 1.2 (0.8-2.0); ALKALINE PHOSPHATASE 61 IU/L (40-150); ANION GAP 15.5 mmol/L (8-16); BLOOD UREA NITROGEN 25 mg/dL (7-26); BUN/CREATININE RATIO 31 (6-25); CALCIUM 9.2 mg/dL (8.4-10.2); CARBON DIOXIDE 25 mmol/L (22-29); CHLORIDE 103 mmol/L (98-107); EST GLOMERULAR FILTRATION RATE > 60 ML/MIN (60-); GLUCOSE 111 mg/dL (74-118); SODIUM 138 mmol/L (136-145)
[2020-09-17 12:06] LABS: POTASSIUM 5.5 mmol/L (3.5-5.1)
[2020-09-17] MEDS ORDERED: HYDROMORPHONE 1MG/1ML INJ IV STA (12:15)
[2020-09-17 13:16] LABS: CLARITY,URINE CLEAR (CLEAR); COLOR,URINE YELLOW (YELLOW)
[2020-09-17 13:17] LABS: KETONES,URINE 1+ (NEGATIVE); LEUKOCYTE ESTERASE ,URINE NEGATIVE (NEGATIVE); NITRITE,URINE NEGATIVE (NEGATIVE); PROTEIN,URINE DIPSTICK NEGATIVE (NEGATIVE); URINE UROBILINOGEN 0.2 mg/dL (0.2 - 1)
[2020-09-17 13:27] LABS: BACTERIA,URINE RARE /HPF; EPITHELIAL CELLS,URINE FEW /LPF; RBC,URINE 0-5 /HPF (0-5); WBC,URINE (MAN) 0-5 /HPF (0-5)
[2020-09-17] MEDS ORDERED: PROMETHAZINE 12.5MG/ NACL 0.9% 12.5 MG/50 ML BAG IV ONE (13:45)
[2020-09-17] MEDS ORDERED: ONDANSETRON ODT8 MG PO (15:04)
== END 2020-09-17 15:58 | disposition home or self-care (01) ==
LOC: ER 11:04
DX: M79.18 Myalgia, other site (principal); M54.6 Pain in thoracic spine; X50.0XXA Overexertion from strenuous movement or load, initial encounter; Z86.73 Personal history of transient ischemic attack (TIA), and cerebral infarction without residual deficits
CPT/HCPCS: 36415; 80053; 81001; 85025; 87086; 99284; J1170; J1885; J2405; J2550; J7030

== ENCOUNTER → 2022-08-04 | Outpatient (CLI) | payer MEDICARE ==
[~2022-08-04] MED LIST changes: +ONDANSETRON ODT8 MG PO
== END ==
LOC: CT 15:14
PROVIDERS: ATTEND Internal Medicine Gastroenterology
DX: R10.32 Left lower quadrant pain (principal); K59.09 Other constipation; Z86.010 Personal history of colon polyps
CPT/HCPCS: 74176